=== PATIENT | male | born 1950 | race Caucasian/White ===

== ENCOUNTER 2024-10-22 13:49 | Outpatient (CLI) | payer MEDICARE, OTHER, SELFPAY ==
--- NOTE | ~2024-10-22 | XR_ITS ---
EXAMINATION: XR chest 2V DATE: 10/22/2024 14:24 INDICATION: Chronic cough. TECHNIQUE: PA and lateral views of the chest were obtained. COMPARISON: None FINDINGS: The lungs are clear with no focal airspace opacities, pulmonary edema, pleural effusion or pneumothor ax. Borderline heart size accounting for AP technique. Median sternotomy wires, ostial markers and me diastinal surgical clips consistent with prior coronary artery bypass grafting. Mild thoracic spondyl osis. IMPRESSION: 1. No acute cardiopulmonary disease. 2. Borderline heart size with change of prior coronary artery bypass grafting. Reviewed, dictated and finalized at location A.
--- OUTSIDE RECORDS SUMMARY | 2024-10-22 14:17 | XMS_ITS | Clinical Summary ---
Author Organization [facility] Address [address] [place] [address] Care Team Providers Care Founder And Chief Executive Officer Name Role Phone Kam Gillette Primary Care Provider [phone] Ralph De Jesus MD Unavailable [phone] Sarah Fairbanks RN Unavailable Unavailable Andra Canada RN Unavailable Unavailab le Allergies No known active allergies Medications cholecalciferol (VITAMIN D-3) 5,000 unit tablet daily. Ac tive multivitamin (MULTIPLE VITAMINS ORAL) daily. Active vit A/vit C/vit E/zinc/copper (ICAPS AREDS ORAL) daily 11/15/19 20 Active acyclovir (ZOVIRAX) 200 mg capsule 06/28/19 23 Active levothyroxine (Synthroid) 100 mcg tabletIndications: Other specified hypothyroidism Take 1 tablet (100 mcg total) by mouth daily 90 tablet 3 06/26/19 24 Active clotrimazole-betam ethasone (LOTRISONE) cream Apply topically 2 (two) times a day 45 g 1 10/27/19 24 Active aspirin 81 mg enteric coated tablet Take 1 tablet (81 mg total) by mouth daily 90 tablet 3 08/01/19 25 026 Active atorvastatin (Lipitor) 40 mg tabletIndications: Mixed hyperlipidemia Take 1 tablet (40 mg total) by mouth nightly at bedtime. 90 tablet 3 08/01/19 25 026 Active carvediloL (COREG) 25 mg tabletIndications: ASCVD (arteriosclerotic cardiovascular disease) Take 1 tablet (25 mg total) by mouth 2 (two) times a day with meals 180 tablet 3 08/01/19 25 026 Active ramipriL (ALTACE) 10 mg capsule Take 1 capsule (10 mg total) by mouth daily 90 capsule 3 08/01/19 25 026 Active nitroglycerin (NITROSTAT) 0.4 mg SL tabletIndications: acute episode of anginal pain Place 1 tablet (0.4 mg total) under the tongue every 5 (five) minutes as needed for chest pain 25 tablet 1 08/01/19 25 026 Active azithromycin (ZITHROMAX) 250 mg tabletIndications: Lower respiratory infection (e.g., bronchitis, pneumonia, pneumonitis, pulmonitis) Take 2 tablets the first day, then 1 tablet daily for 4 days. 6 tablet 10/19/19 25 Active benzonatate (TESSALON) 200 mg capsuleIndications :Lower respiratory infection (e.g., bronchitis, pneumonia, pneumonitis, pulmonitis) Take 1 capsule (200 mg total) by mouth 3 (three) times a day as needed for cough 30 capsule 10/19/19 25 Active benzonatate (TESSALON) 200 mg capsuleIndications :Acute cough Take 1 capsule (200 mg total) by mouth 3 (three) times a day as needed for cough keep tessalon out of reach of children, especially children under the age of 10, due to possible serious risk such as if ingested by children under the age of 10. 30 capsule 10/01/19 25 025 Discontinu ed(Therapy completed) azithromycin (ZITHROMAX) 250 mg tabletIndications: Acute lower respiratory infection Take 2 tabs (500 mg) by mouth today, than 1 tab (250 mg) daily for 4 days. 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 return to ER for recurrent Morbid (severe) obesity due to excess calories 0 07/04/2022 Cough 12/23/2021 Assessment & Plan (12/23/2021 11:52 AM CDT): Suspect medications, will get CXR to be safe will discuss further after results Actinic keratosis 06/22/2021 Assessment & Plan (06/26/2021 11:23 AM SUPPLY PERSON): Verbal permission, liquid nitrogen to 7 lesions, skin care discussed Routine general medical exam ination at a health care facility 05/16/2019 Assessment & Plan (08/09/2023 8:45 AM SUPPLY PERSON): Healthcare maintenance updated Assessment & Plan (07/04/2022 11:23 AM SUPPLY PERSON): Healthcare maintenance updated Screening for depression 05/16/2019 Assessment & Plan (05/27/2020 10:13 AM SUPPLY PERSON): Denies depression At minimum risk for fall 05/16/2019 Assessment & Plan (07/04/2022 11:22 AM SUPPLY PERSON): No fall Assessment & Plan (05/27/2020 10:12 AM SUPPLY PERSON): Patient denies any fall Other specified hypothyroidism 03/04/2019 Assessment & Plan (08/09/2023 8:45 AM SUPPLY PERSON): This is a stable chronic condition continue current meds labs as ordered Assessment & Plan (12/27/2022 1:46 PM CDT): This is been well controlled on current medications, continue current meds and labs as ordered follow-up routine Assessment & Plan (07/04/2022 11:22 AM SUPPLY PERSON): Controlled with medications, labs as ordered Assessment & Plan (12/23/2021 11:53 AM CDT): Continue current medications pending labs Assessment & Plan (11/30/2020 9:02 AM CDT): Continue current medications, labs as ordered, follow-up 6 Assessment & Plan (05/27/2020 10:12 AM SUPPLY PERSON): Continue current meds labs as ordered Assessment & Plan (11/26/2019 10:16 AM CDT): CPM, labs as ordered HTN (hypertension) 02/19/2019 Assessment & Plan (08/09/2023 8:44 AM SUPPLY PERSON): This is a stable chronic condition. Monitor blood pressure, call if out of parameters as we discussed. Low sodium and caffeine diet. baby asa as discussed if applicable. Diet, exercise and weight reduction. Labs as ordered. F/U routine Assessment & Plan (07/19/2023 12:25 PM SUPPLY PERSON): This is a stable chronic condition. Monitor blood pressure, call if out of parameters as we discussed. Low sodium and caffeine diet. baby asa as discussed if applicable. Diet, exercise and weight reduction. Labs as ordered. F/U routine Assessment & Plan (12/27/2022 1:46 PM CDT): This is a stable chronic condition. Monitor blood pressure, call if out of parameters as we discussed. Low sodium and caffeine diet. baby asa as discussed if applicable. Diet, exercise and weight reduction. Labs as ordered. F/U routine Assessment & Plan (07/04/2022 11:22 AM SUPPLY PERSON): This is a stable chronic condition. Monitor blood pressure, call if out of parameters as we discussed. Low sodium and caffeine diet. baby asa as discussed if applicable. Diet, exercise and weight reduction. Labs as ordered. F/U routine Assessment & Plan (11/30/2020 9:02 AM CDT): This is a stable chronic condition. Monitor blood pressure, call if out of parameters as we discussed. Low sodium and caffeine diet. baby asa as discussed if applicable. Diet, exercise and weight reduction. Labs as ordered. F/U routine Assessment & Plan (05/27/2020 10:12 AM SUPPLY PERSON): This is a stable chronic condition. Monitor blood pressure, call if out of parameters as we discussed. Low sodium and caffeine diet. baby asa as discussed if applicable. Diet, exercise and weight reduction. Labs as ordered. F/U routine Assessment & Plan (11/26/2019 10:15 AM CDT): Images from the original note were not included. This is a stable chronic condition. Monitor blood pressure, call if out of parameters as we discussed. Low sodium and caffeine diet. baby asa as discussed if applicable. Diet, exercise and weight reduction. Labs as ordered. F/U routine Other chest pain 01/06/2019 Assessment & Plan (01/06/2019 4:15 AM CDT): His symptoms are vague but, per his report, similar to the symptoms that led to the diagnosis of three-vessel CAD in 2014. At that time he was diabetic. Since his CABG he has done well and no longer takes medication for diabetes. He is not physically active, although he does try to get 5-12422 steps/day. He does not have chest pain or pressure on exertion. This episode today occurred while lying on a stretcher. It has since resolved. He did not take nitro (declined). EKG with 1mm ST depressions in lateral leads, now resolved. -repeat troponin x 2 -consider stress test either now or as an outpatient Hot flashes 01/06/2019 Assessment & Plan (01/06/2019 4:21 AM CDT): Vague symptoms but possibly ict sales representative of angina. He was recently diagnosed with hypothyroidism and is on synthroid. Will check TSH/T4. He also had a diagnosis of diabetes (only required metformin) but this resolved after CABG with diet and exercise. Recheck A1C now as he has had recent weight gain. He is on Topomax for weight loss but I am not aware of this as a side effect. Other possibilities would include atrial fibrillation (had postop AF but none since) or infection (mild leukocytosis). -tele -UA -thyroid studies, A1C Obesity (BMI 30-39.9) 10/09/2018 Assessment & Plan (01/06/2019 4:22 AM CDT): Hold Topamax for now until chest pain is evaluated. Assessment & Plan (10/09/2018 9:50 AM CDT): Recommended aggressive Lifestyle modification and weight loss for improving overall weight related health conditions. Follow up in 1 or 3 months for continuing Lifestyle Medicine education and management visit. Weight gain, abnormal 09/08/2018 Assessment & Plan (11/30/2020 9:03 AM CDT): Healthy diet exercise and weight reduction, follow-up routine Assessment & Plan (05/27/2020 10:13 AM SUPPLY PERSON): Discussed the importance of diet exercise and weight reduction Assessment & Plan (10/09/2018 9:44 AM CDT): Discussed/Re-emphasized Diet (90%) + Physical Activity (10%) Plan: Discussed/Re-emphasized Vegetables/Fruits Nutritional Ranking Handout: Recommended >80% calories from Whole Food Plant Based Nutrition. Discussed/Re-emphasized Processed Food (Frozen, Canned, Fast, Refined...) vs. Whole Food/Organic/Non-GMO Discussed/Re-emphasized High Fiber Diet: How to increase fibers in diet Handout being provided. Discussed/Re-emphasized Dawn/Phytochemicals Diet. Disucssed/Re-emphasized [place] Diet: Grocery List and Weekly Meal Plan provided. Discussed/Re-emphasized Low Carb Diet (<50g/day) with approximately Low Calories (<1200kcal/day): Grocery List, Daily Meal Plan and Healthy Alternative being provided. Discussed/Re-emphasized Non-weight bearing exercise to complete average 7500- 97082 steps per day: Swimming or Stationary Exercise Bike. Disccused/Re-emphasized SAI/CPAP/Sleep. Disccused/Re-emphasized Good Carb/Protein/Fat. Discussed/Re-emphasized Glycemic Index/Load to determine Good vs. Bad Carbs. Discussed/Re-emphasized Behaviroral Modification to reduce stress by Yoga and Mindfulness. Discussed/Re-emphasized Small (<250kcal) vs. Large Meals (<450kcal) Based on Calories, not volume: Approximately Small Meals x 3 + Large Meal x 1 (Preferably Lunch). Discussed/Re-emphasized Small Meal Intermittent Snacking (<250kcal): Nuts (Soaked in water overnight), Berries, Seeds, Dried/Fresh Fruits/Vegetables. Discussed/Re-emphasized Energy Options: Vitamin B12 Tablets (2 hours prior to Dinner), Caffeine Tablets (in AM or Lunch Time) or FDA Approved Weight Loss Prescription Medications. Discussed/Re-emphasized Weight loss Medications in detail including side effects: Phenteramine, Qsymia, Belviq, Contrave, Saxenda! Consider OTC Meal Replacement Plans or Home Delivery Meal Plans. Encourage Monthly office visits to ensure accountability and continuous positive weight outcomes. General Guidelines: 1. Restrict Caloric Intake: Instead of calculating total calories, you can eliminate one food item from daily intake at a time that would be worth of 100-200 kcal. Minimize Processed carbohydrates (Potatoes, Pasta, Bread, rice and corn) and processed sugars (Sodas, Cookies, Donuts & Desserts). Small plates and bowels. Small meals (Under 250kcal) at a time! 2. Quality of Diet: Organic, Non-GMO, fresh, raw-food, whole-food & more fruits and vegetables. Look for lean protein (Soy, Lentils, beans, legumes and nuts). Avoid processed food (frozen, canned, fast-food). Shop food economically from multiple places. 3. Stress Reduction: Yoga, Mindfulness, Exercise, Volunteering, Spirituality! Mindfulness eating (Avoid multi-tasking while eating and Increase awareness of what food is doing to Body). 4. Quality Restful Sleep: Melatonin, Yoga-Nidra, Kiwi fruit. Avoid meals in last two hours of the day. Avoid Caffeine, alcohol, high sugar/desserts and tobacco with or after dinner. 5. Increase Exertion within Daily Activities: 7500-71625 Steps/day. Avoid Elevators, escalators at public places. Increase steps in parking lots!. Clinical Notes: More than 30 minutes being spent Face to Face with Patient during office visit. More than 50% duration was spent toward Detailed Counselling including various kinds of Dietory methods, activities, medications and potential weight loss surgical options. Detailed Handouts on each topics were also printed and hand-delivered to the patient. Pure hypercholesterolemia 08/13/2018 Overview (05/22/2019): CPM, labs, diet Assessment & Plan (12/23/2021 11:53 AM CDT): Patient is to continue present medications, work on diet and exercise as discussed, we did discuss the medications and potential side effects and signs and symptoms that would warrant calling office. Follow up routine. Encounter for risk and functional assessment 09/2018 Overview (05/22/2019): able to perform all ADL Assessment & Plan (05/27/2020 10:12 AM SUPPLY PERSON): Patient is able to perform all ADL ASCVD (arteriosclerotic cardiovascular disease) 08/10/2017 Assessment & Plan (08/09/2023 8:44 AM SUPPLY PERSON): This is also stable chronic condition continue current medications follow-up with Cardiology Assessment & Plan (07/19/2023 12:25 PM SUPPLY PERSON): Patient is Assessment & Plan (12/27/2022 1:46 PM CDT): Patient is stable, continue current meds, follow-up with Cardiology Assessment & Plan (07/04/2022 11:22 AM SUPPLY PERSON): This is stable and patient is followed by cardiology Assessment & Plan (12/23/2021 11:52 AM CDT): This is stable and patient is taking his meds and followed by cardiology will continue to follow Assessment & Plan (11/30/2020 8:54 AM CDT): This is well controlled, patient is on aspirin. Patient is on a statin. Continue to follow up with Cardiology Assessment & Plan (05/27/2020 10:10 AM SUPPLY PERSON): Patient is stable, continue current meds follow-up routine Atrial fibrillation 07/22/2016 Assessment & Plan (12/23/2021 11:52 AM CDT): This is stable and patient is asymptomatic continue current meds follow-up 6 months Assessment & Plan (05/27/2020 10:12 AM SUPPLY PERSON): This is well controlled patient is on meds and followed by cardiology Assessment & Plan (11/26/2019 10:14 AM CDT): Stable, no issues, seeing cardiology Diabetes mellitus 06/16/2016 Assessment & Plan (08/09/2023 8:44 AM SUPPLY PERSON): Patient is going to continue current medications, current labs were ordered, eye exam is up-to-date, foot care was discussed. Healthy diet and reference to [email or web address]. Exercise as discussed, follow-up as scheduled routine. We did discuss proper monitoring of blood sugars Assessment & Plan (07/19/2023 12:25 PM SUPPLY PERSON): Patient is going to continue current medications, current labs were ordered, eye exam is up-to-date, foot care was discussed. Healthy diet and reference to [email or web address]. Exercise as discussed, follow-up as scheduled routine. We did discuss proper monitoring of blood sugars Assessment & Plan (12/27/2022 1:46 PM CDT): This is been well controlled with diet last A1c was 6.5 continue diet exercise and weight reduction eye exam is up-to-date labs as ordered Assessment & Plan (07/04/2022 11:22 AM SUPPLY PERSON): This is diet controlled, labs as ordered Assessment & Plan (12/23/2021 11:52 AM CDT): This is diet controlled will continue to monitor Assessment & Plan (11/30/2020 9:02 AM CDT): This is in excellent control with diet only continue diet. Assessment & Plan (05/27/2020 10:12 AM SUPPLY PERSON): Patient is going to continue current medications, current labs were ordered, eye exam is up-to-date, foot care was discussed. Healthy diet and reference to [email or web address]. Exercise as discussed, follow-up as scheduled routine. We did discuss proper monitoring of blood sugars Assessment & Plan (11/26/2019 10:14 AM CDT): Patient is going to continue current medications, current labs were ordered, eye exam is up-to-date, foot care was discussed. Healthy diet and reference to [email or web address]. Exercise as discussed, follow-up as scheduled routine. We did discuss proper monitoring of blood sugars Dyspnea 06/16/2016 H/O cardiac catheterization 06/16/2016 Light headedness 06/16/2016 Sleep apnea 06/16/2016 Assessment & Plan (12/23/2021 11:53 AM CDT): Patient is tolerating his CPAP well continue current treat Assessment & Plan (11/30/2020 9:03 AM CDT): This is stable and patient is seeing Dr. Nation in using his CPAP Assessment & Plan (05/27/2020 10:13 AM SUPPLY PERSON): Continue CPAP Assessment & Plan (11/26/2019 10:17 AM CDT): On C-Pap Hyperlipidemia 06/16/2016 Assessment & Plan (08/09/2023 8:44 AM SUPPLY PERSON): Patient is to continue present medications, work on diet and exercise as discussed, we did discuss the medications and potential side effects and signs and symptoms that would warrant calling office. Follow up routine. Assessment & Plan (07/19/2023 12:25 PM SUPPLY PERSON): Patient is to continue present medications, work on diet and exercise as discussed, we did discuss the medications and potential side effects and signs and symptoms that would warrant calling office. Follow up routine. Assessment & Plan (12/27/2022 1:46 PM CDT): Patient is to continue present medications, work on diet and exercise as discussed, we did discuss the medications and potential side effects and signs and symptoms that would warrant calling office. Follow up routine. Assessment & Plan (07/04/2022 11:22 AM SUPPLY PERSON): Patient is to continue present medications, work on diet and exercise as discussed, we did discuss the medications and potential side effects and signs and symptoms that would warrant calling office. Follow up routine. Assessment & Plan (11/30/2020 9:02 AM CDT): Patient is to continue present medications, work on diet and exercise as discussed, we did discuss the medications and potential side effects and signs and symptoms that would warrant calling office. Follow up routine. Assessment & Plan (05/27/2020 10:12 AM SUPPLY PERSON): Patient is to continue present medications, work on diet and exercise as discussed, we did discuss the medications and potential side effects and signs and symptoms that would warrant calling office. Follow up routine. Assessment & Plan (11/26/2019 10:15 AM CDT): Patient is to continue present medications, work on diet and exercise as discussed, we did discuss the medications and potential side effects and signs and symptoms that would warrant calling office. Follow up routine. Paroxysmal atrial fibrillation 04/06/2015 Assessment & Plan (08/09/2023 8:44 AM SUPPLY PERSON): This is a stable chronic condition continue current meds follow-up with Cardiology Assessment & Plan (07/19/2023 12:25 PM SUPPLY PERSON): Patient is stable asymptomatic and followed by cardiology Assessment & Plan (12/27/2022 1:46 PM CDT): Patient is stable and asymptomatic continue current meds follow-up routine Assessment & Plan (07/04/2022 11:22 AM SUPPLY PERSON): This is well controlled and patient is asymptomatic continue current meds follow-up with Cardiology routine Assessment & Plan (11/30/2020 9:02 AM CDT): This is stable, patient is on aspirin and seen Cardiology, follow-up routine Diastolic dysfunction 04/06/2015 History of coronary artery bypass surgery 2014 Abnormal cardiovascular stress test 04/06/2015 Triple vessel coronary artery disease 02/12/2015 Assessment & Plan (08/09/2023 8:44 AM SUPPLY PERSON): Patient is stable asymptomatic and followed by cardiology encourage activity status post left knee replacement Assessment & Plan (07/19/2023 12:25 PM SUPPLY PERSON): Patient is stable and followed by cardiology Assessment & Plan (12/27/2022 1:47 PM CDT): Patient is stable and asymptomatic. Follow-up with Cardiology Assessment & Plan (07/04/2022 11:23 AM SUPPLY PERSON): This is stable and patient is asymptomatic continue current meds follow-up with Cardiology Assessment & Plan (12/23/2021 11:53 AM CDT): Patient is stable and followed by cardiology Assessment & Plan (11/30/2020 9:03 AM CDT): Patient is stable and seen Cardiology. He is on an aspirin and a statin. Follow- up routine Assessment & Plan (01/06/2019 4:15 AM CDT): Continue ASA, statin, BB. Resolved Problems Problem Noted Date Diagnosed Date Resolved Date Hyperlipidemia 04/06/2015 05/16/2019 Assessment & Plan (01/06/2019 4:22 AM CDT): Continue statin. Encounters Date Type Department Care Team Description 10/18/2024 9:15 AM CDT Office Visit [facility] at [address] [id number] Emilia Aguilar NP Lower respiratory infection (e.g., bronchitis, pneumonia, pneumonitis, pulmonitis) (Primary Dx) 09/30/2024 9:15 AM CDT Office Visit [facility] [address] [phone] Josef Mueller NP Acute cough (Primary Dx); Acute lower respiratory infection 09/04/2024 12:35 PM CDT Lab [facility] [address] [id number] 08/01/2024 11:00 AM SUPPLY PERSON Office Visit [facility] [address] [facility] [address] [place] [address] Ralph De Jesus MD Primary hypertension (Primary Dx); Diastolic dysfunction; Mixed hyperlipidemia; ASCVD (arteriosclerotic cardiovascular disease) from Last 3 Months Immunizations Immunization Administration Dates Next Due Influenza, Quadrivalent, Hig h Dose, Preservative Free, Intrr 03/09/2023,03/25/2022,04/06/2020 Influenza, Trivalent, High D ose, Split, Preservative Free, Intramuscular 05/22/2019,07/13/2018 Influenza, Unspecified 03/09/2023,2021,04/21/2021,04/06,07/13/2018,03/05/2015 Moderna SARS-CoV-2 Monovalen t Vaccination (12+ YRS) 08/12/2020,07/15/2020 Pneumococcal Conjugate PCV 13 11/30/2020 Pneumococcal Polysaccharide PPV23 07/15/2016 RSV Vaccine, Pref, Recombina nt, Subunit, Adjuvanted, PF, IM (Arexvy) 03/09/2023 TD Preservative Free 06/23/2014 ZOSTER LIVE 06/23/2014 Surgical History Surgery Date Site/Laterality Comments EAR SURGERY Ear Surgery - (Added by TW Conv) HEART SURGERY Heart Surgery - (Added by TW Conv) CARDIAC CATHETERIZATION 02/02/2015 CORONARY ARTERY BYPASS GRAFT 02/10/2015 - 03/11/2015 KNEE SURGERY 06/12/1964 - 06/11/1965 COLONOSCOPY 06/12/2009 - 07/12/2009 JOINT REPLACEMENT Medical History Medical History Date Comments Personal history of other di seases of the nervous system and sense organs History of hearing los s - (Added by TW Conv) Pure hypercholesterolemia High c holesterol - (Added by TW Conv) Personal history of other en docrine, nutritional and metabolic disease History of diabetes mellitus - (Added by TW Conv) Personal history of other di seases of the nervous system and sense organs History of sleep apnea - (Added by TW Conv) Coronary artery disease Diabetes mellitus (HCC) Hypertension Depression 1995 Heart disease 2014 Sleep apnea 2013 Thyroid disease 2018 Mixed conductive and sensori neural hearing loss 1976 Family History Medical History Relation Name Comments Diabetes Father Ed Heart disease Father Ed Obesity Father Ed Hearing loss Maternal Grandfather Evgeny Thomas Anemia Mother Renetta Diabetes Mother Renetta Heart disease Mother Renetta Family history of cardiac disorder - (Added by TW Conv) Kidney disease Mother Renetta Family histor y of kidney disease - (Added by TW Conv) Memory loss Mother Renetta Obesity Mother Renetta Stroke Mother Renetta Diabetes Sister 4 María Elena Diabetes Sister 5 Roxann Relation Name Status Comments Brother 1 Alive Brother 2 Alive Father Ed (Age 77) Maternal Grandfather Evgeny Thomas Mother Renetta (Age 89) Sister 1 Alive Sister 2 Alive Sister 3 Alive Sister 4 María Elena Sister 5 Roxann Social History Tobacco Use Types Packs/Day Years Used Date Smoking Tobacco: Former Vaping Smokeless Tobacco: Never Tobacco Cessation:Counseling Given: Not Answered Alcohol Use Standard Drinks/Week Comments Never 0 (1 standard drink = 0.6 oz pur e alcohol) AUDIT-C Answer Date Recorded Q1: How often do you have a drink containing alc ohol? Monthly or less 08/09/2023 Q2: How many drinks containi ng alcohol do you have on a typical day when you are drinking? 1 or 2 08/09/2023 Frequency of Binge Drinking Not on file 07/14 PHQ-2 Answer Date Recorded PHQ-2 Total Score (If total score is 3 or more points, staff should administer the PHQ-9) 0 08/02/2023 Personal Safety Answer Date Recorded Have you ever been in or are you currently in a harmful physical or emotional relationship or is someone making you feel afraid or unsafe? Denies 07/13/2023 Sex and Gender Information Value Date Recorded Sex Assigned at Not on file Legal Sex Male 6:25 AM SUPPLY PERSON Gender Identity Male 05/22/2020 10:26 AM SUPPLY PERSON Sexual Orientation Not on file Obstetrics History Last Filed Vital Signs Vital Sign Reading Time Taken Comments Blood Pressure 126/70 10/18/2024 9:18 AM CDT Pulse 86 10/18/2024 9:18 AM CDT Temperature 37.8 C (100 F) 10/18/2024 9:18 AM CDT Respiratory Rate 20 10/18/2024 9:18 AM CDT Oxygen Saturation 99% 10/18/2024 9:18 AM CDT Inhaled Oxygen Concentration - - Weight 105.7 kg (233 lb) 10/18/2024 9:18 AM CDT Height 172.7 cm (5' 8 ) 10/18/2024 9:18 AM CDT Body Mass Index 35.43 10/18/2024 9:18 AM CDT Plan of Treatment Health Maintenance Due Date Last Done Comments Hepatitis B Screening 1968 Foot Exam 06/22/2022 06/22/2021, 11/11, 05/27/2020, Additional history exists Covid-19 Vaccine (2023- 5 season) 2024 03/18/2023, 09/17/2021, 04/21/2021, Additional history exists Depression Screening 08/09/2024 08/09/2023, 07/19/2023, 07/04/2022, Additional history exists Fall Risk Assessment 08/09/2024 08/09/2023, 07/19/2023, 07/04/2022, Additional history exists Well Visit 65+ 08/09/2024 08/09/2023, 06/13, 06/22/2021, Additional history exists Dilated Eye Exam 12/22/2024 12/22/2022, , 12/02/2020 Hemoglobin A1C 03/07/2025 09/04/2024, 02/11, 08/09/2023, Additional history exists Albumin Creatinine Ratio, Urine 09/04/2025 09/04/2024, 03/06/2024, 08/09/2023, Additional history exists Lipid Panel 09/04/2025 09/04/2024, 02/11, 08/09/2023, Additional history exists eGFR 09/04/2025 09/04/2024, 02/11, 08/09/2023, Additional history exists Colon Cancer Screening-Colonoscopy 07/18/2029 07/18/2019 DTaP/Tdap/Td Vaccine Discontinued 06/23/2014, 07/05/19 14 Hepatitis C Screening Completed 05/22/2019 Abdominal Aortic Aneurysm (A AA) Screen Completed 06/20/2019 Colon Cancer Screening-CT Colonography Discontinued 07/18/2019 Colon Cancer Screening-DNA Stool Discontinued 07/18/19 20 Colon Cancer Screening-FIT Discontinued 07/18/2019 Colon Cancer Screening-Sigmoidoscopy Discontinued 07/18/2019 Pneumococcal vaccine 65+ Completed 11/30/2020, 08/2016 Zoster Vaccine Discontinued 03/19/2021, 0 06/2017, 06/23/2014, Additional history exists Influenza Vaccine Completed 04/10/2024, , 03/09/2023, Additional history exists Procedures Procedure Name Priority Date/Time Associated Diagnosis Comments POC INFLUENZA A/B, COVID-19 ANTIGEN Routine 10/18/2024 9:42 AM CDT Lower respiratory infection (e.g., bronchitis, pneumonia, pneumonitis, pulmonitis) POC INFLUENZA A/B, COVID-19 ANTIGEN Routine 09/30/2024 9:55 AM CDT Acute cough EGFR Routine 09/04/2024 12:56 PM CDT VITAMIN D 25 HYDROXY Routine 09/04/2024 12:56 PM CDT ALBUMIN CREATININE RATIO, URINE Routine 09/04/2024 12:56 PM CDT HEMOGLOBIN A1C Routine 09/04/2024 12:56 PM CDT T4, FREE Routine 09/04/2024 12:56 PM CDT TSH Routine 09/04/2024 12:56 PM CDT COMPREHENSIVE METABOLIC PANEL Routine 09/04/2024 12:56 PM CDT LIPID PANEL Routine 09/04/2024 12:56 PM CDT DIABETIC EYE EXAM Routine 12/22/2022 COLONOSCOPY Routine 07/18/2019 US ABDOMINAL AORTA 06/20/2019 9: 21 AM SUPPLY PERSON HEPATITIS C ANTIBODY Routine 05/22/2019 9:13 AM SUPPLY PERSON Need for hepatitis C screening test from Last 3 Months or Most Recently Relevant to Health Maintenance Results * POC Influenza A/B, COVID-19 antigen (10/18/2024 9:42 AM CDT) Influenza A Ag, POC Negative Negative [facility] Influenza B Ag, POC Negative Negative [facility] COVID-19 Ag POC Presumptive Negative Presumptive Negative, Invalid [facility] Nasal 10/18/2024 9:42 AM CDT Emilia Aguilar PROJECT CONTROL OFFICER POINT OF CARE TEST ORDERABLES Final Result Performing Organization Address [facility] de Phone Number [facility] [address] [place] [address] * POC Influenza A/B, COVID-19 antigen (09/30/2024 9:55 AM CDT) Influenza A Ag, POC Negative Negative [facility] Influenza B Ag, POC Negative Negative [facility] COVID-19 Ag POC Presumptive Negative Presumptive Negative, Invalid [facility] Nasal 09/30/2024 9:55 AM CDT Josef Mueller PROJECT CONTROL OFFICER POINT OF CARE TEST ORDERABLES F inal Result Performing Organization Address [facility] Co de Phone Number [facility] [address] [place] [address] * eGFR (09/04/2024 12:56 PM CDT) Pathologist [facility] eGFR >90 >=60 mL/min/1. 73 m2 Comment: Interpretive Data Reference Interval Normal >/= 90 mL/min/1.73m2 Mildly decreased* 60 - 89 mL/min/1.73m2 Mildly to moderately decreased 45 - 59 mL/min/1.73m2 Moderately to severely decreased 30 - 44 mL/min/1.73m2 Severely decreased 15 - 29 mL/min/1.73m2 Kidney Failure < 15 mL/min/1.73m2 *Relative to young adult level Estimated glomerular filtration rate is determined by the 2020 CKD-EPI equation recommended by the National Kidney Foundation (A Unifying Approach to GFR Estimation: Recommendations of the NKF-ASK Task Force on Reassessing the Inclusion of Race in Diagnosing Kidney Disease, JASN 2020). The CKD-EPI equation should not be used for patients with unstable renal function and has not been validated in children and those over 70. Current interpretive data was last reviewed 2021. Testing performed by: [address] [address] Blood 09/04/2024 12:5 6 PM CDT 09/04/2024 2:09 PM CDT Kam YING LAB BLOOD ORDERABLES Final Resu lt [facility] [address] [facility] Department [place] [address] * Albumin Creatinine Ratio, Urine (09/04/2024 12:56 PM CDT) Albumin Ur <12.0 mg/L Comment: Interpretive Data No reference range established. Current interpretive data was last revised 2018. Testing performed by: [address] [address] Creatinine Ur 94.9 mg/dL JADA Comment: Interpretive Data No reference range established. Current interpretive data was last revised 2018. Testing performed by: [address] [address] Albumin Creatinine Ratio, Ur <13 1 - 29 mg/g JADA [id number]|2024-10-22 14:17:00|2024-10-22 14:16:00|XMS_ITS|SATURNINO LOPEZ|External Medical Summaries|[id number]|" Referral Summary Created on: October 22, 2024 Dion Gillette : 1950 Sex: Male Author Organization [facility] Address [address] [place] [address] Care Team Providers Care Founder And Chief Executive Officer Name Role Phone Kam Gillette Primary Care Provider Ralph De Jesus MD Unavailable [phone] Sarah Fairbanks RN Unavailable Unavailable Andra Canada RN Unavailable Unavailab le Encounters Date Type Department Care Team Description 10/18/2024 9:15 AM CDT Office Visit [facility] at [address] [address] Emilia Aguilar NP Lower respiratory infection (e.g., bronchitis, pneumonia, pneumonitis, pulmonitis) (Primary Dx) 09/30/2024 9:15 AM CDT Office Visit [facility] Medical [facility] at [address] [phone] Josef Mueller NP Acute cough (Primary Dx); Acute lower respiratory infection 09/04/2024 12:35 PM CDT Lab [facility] Medical Office Building [address] [address] 08/01/2024 11:00 AM SUPPLY PERSON Office Visit [facility] Medical Office Building [address] [place] [address] Ralph De Jesus MD Primary hypertension (Primary Dx); Diastolic dysfunction; Mixed hyperlipidemia; ASCVD (arteriosclerotic cardiovascular disease) from Last 3 Months Allergies No known active allergies Medications cholecalciferol (VITAMIN D-3) 5,000 unit tablet daily. Ac tive multivitamin (MULTIPLE VITAMINS ORAL) daily. Active vit A/vit C/vit E/zinc/copper (ICAPS AREDS ORAL) daily 11/15/19 20 Active acyclovir (ZOVIRAX) 200 mg capsule 06/28/19 23 Active levothyroxine (Synthroid) 100 mcg tabletIndications: Other specified hypothyroidism Take 1 tablet (100 mcg total) by mouth daily 90 tablet 3 06/26/19 24 Active clotrimazole-betam ethasone (LOTRISONE) cream Apply topically 2 (two) times a day 45 g 1 10/27/19 24 Active aspirin 81 mg enteric coated tablet Take 1 tablet (81 mg total) by mouth daily 90 tablet 3 08/01/19 25 026 Active atorvastatin (Lipitor) 40 mg tabletIndications: Mixed hyperlipidemia Take 1 tablet (40 mg total) by mouth nightly at bedtime. 90 tablet 3 08/01/19 25 026 Active carvediloL (COREG) 25 mg tabletIndications: ASCVD (arteriosclerotic cardiovascular disease) Take 1 tablet (25 mg total) by mouth 2 (two) times a day with meals 180 tablet 3 08/01/19 25 026 Active ramipriL (ALTACE) 10 mg capsule Take 1 capsule (10 mg total) by mouth daily 90 capsule 3 08/01/19 25 026 Active nitroglycerin (NITROSTAT) 0.4 mg SL tabletIndications: acute episode of anginal pain Place 1 tablet (0.4 mg total) under the tongue every 5 (five) minutes as needed for chest pain 25 tablet 1 08/01/19 25 026 Active azithromycin (ZITHROMAX) 250 mg tabletIndications: Lower respiratory infection (e.g., bronchitis, pneumonia, pneumonitis, pulmonitis) Take 2 tablets the first day, then 1 tablet daily for 4 days. 6 tablet 10/19/19 25 Active benzonatate (TESSALON) 200 mg capsuleIndications :Lower respiratory infection (e.g., bronchitis, pneumonia, pneumonitis, pulmonitis) Take 1 capsule (200 mg total) by mouth 3 (three) times a day as needed for cough 30 capsule 10/19/19 25 Active benzonatate (TESSALON) 200 mg capsuleIndications :Acute cough Take 1 capsule (200 mg total) by mouth 3 (three) times a day as needed for cough keep tessalon out of reach of children, especially children under the age of 10, due to possible serious risk such as if ingested by children under the age of 10. 30 capsule 10/01/19 25 025 Discontinu ed(Therapy completed) azithromycin (ZITHROMAX) 250 mg tabletIndications: Acute lower respiratory infection Take 2 tabs (500 mg) by mouth today, than 1 tab (250 mg) daily for 4 days. 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 return to ER for recurrent Morbid (severe) obesity due to excess calories 0 07/04/2022 Cough 12/23/2021 Assessment & Plan (12/23/2021 11:52 AM CDT): Suspect medications, will get CXR to be safe will discuss further after results Actinic keratosis 06/22/2021 Assessment & Plan (06/26/2021 11:23 AM SUPPLY PERSON): Verbal permission, liquid nitrogen to 7 lesions, skin care discussed Routine general medical exam ination at a health care facility 05/16/2019 Assessment & Plan (08/09/2023 8:45 AM SUPPLY PERSON): Healthcare maintenance updated Assessment & Plan (07/04/2022 11:23 AM SUPPLY PERSON): Healthcare maintenance updated Screening for depression 05/16/2019 Assessment & Plan (05/27/2020 10:13 AM SUPPLY PERSON): Denies depression At minimum risk for fall 05/16/2019 Assessment & Plan (07/04/2022 11:22 AM SUPPLY PERSON): No fall Assessment & Plan (05/27/2020 10:12 AM SUPPLY PERSON): Patient denies any fall Other specified hypothyroidism 03/04/2019 Assessment & Plan (08/09/2023 8:45 AM SUPPLY PERSON): This is a stable chronic condition continue current meds labs as ordered Assessment & Plan (12/27/2022 1:46 PM CDT): This is been well controlled on current medications, continue current meds and labs as ordered follow-up routine Assessment & Plan (07/04/2022 11:22 AM SUPPLY PERSON): Controlled with medications, labs as ordered Assessment & Plan (12/23/2021 11:53 AM CDT): Continue current medications pending labs Assessment & Plan (11/30/2020 9:02 AM CDT): Continue current medications, labs as ordered, follow-up 6 Assessment & Plan (05/27/2020 10:12 AM SUPPLY PERSON): Continue current meds labs as ordered Assessment & Plan (11/26/2019 10:16 AM CDT): CPM, labs as ordered HTN (hypertension) 02/19/2019 Assessment & Plan (08/09/2023 8:44 AM SUPPLY PERSON): This is a stable chronic condition. Monitor blood pressure, call if out of parameters as we discussed. Low sodium and caffeine diet. baby asa as discussed if applicable. Diet, exercise and weight reduction. Labs as ordered. F/U routine Assessment & Plan (07/19/2023 12:25 PM SUPPLY PERSON): This is a stable chronic condition. Monitor blood pressure, call if out of parameters as we discussed. Low sodium and caffeine diet. baby asa as discussed if applicable. Diet, exercise and weight reduction. Labs as ordered. F/U routine Assessment & Plan (12/27/2022 1:46 PM CDT): This is a stable chronic condition. Monitor blood pressure, call if out of parameters as we discussed. Low sodium and caffeine diet. baby asa as discussed if applicable. Diet, exercise and weight reduction. Labs as ordered. F/U routine Assessment & Plan (07/04/2022 11:22 AM SUPPLY PERSON): This is a stable chronic condition. Monitor blood pressure, call if out of parameters as we discussed. Low sodium and caffeine diet. baby asa as discussed if applicable. Diet, exercise and weight reduction. Labs as ordered. F/U routine Assessment & Plan (11/30/2020 9:02 AM CDT): This is a stable chronic condition. Monitor blood pressure, call if out of parameters as we discussed. Low sodium and caffeine diet. baby asa as discussed if applicable. Diet, exercise and weight reduction. Labs as ordered. F/U routine Assessment & Plan (05/27/2020 10:12 AM SUPPLY PERSON): This is a stable chronic condition. Monitor blood pressure, call if out of parameters as we discussed. Low sodium and caffeine diet. baby asa as discussed if applicable. Diet, exercise and weight reduction. Labs as ordered. F/U routine Assessment & Plan (11/26/2019 10:15 AM CDT): Images from the original note were not included. This is a stable chronic condition. Monitor blood pressure, call if out of parameters as we discussed. Low sodium and caffeine diet. baby asa as discussed if applicable. Diet, exercise and weight reduction. Labs as ordered. F/U routine Other chest pain 01/06/2019 Assessment & Plan (01/06/2019 4:15 AM CDT): His symptoms are vague but, per his report, similar to the symptoms that led to the diagnosis of three-vessel CAD in 2014. At that time he was diabetic. Since his CABG he has done well and no longer takes medication for diabetes. He is not physically active, although he does try to get 5-45118 steps/day. He does not have chest pain or pressure on exertion. This episode today occurred while lying on a stretcher. It has since resolved. He did not take nitro (declined). EKG with 1mm ST depressions in lateral leads, now resolved. -repeat troponin x 2 -consider stress test either now or as an outpatient Hot flashes 01/06/2019 Assessment & Plan (01/06/2019 4:21 AM CDT): Vague symptoms but possibly ict sales representative of angina. He was recently diagnosed with hypothyroidism and is on synthroid. Will check TSH/T4. He also had a diagnosis of diabetes (only required metformin) but this resolved after CABG with diet and exercise. Recheck A1C now as he has had recent weight gain. He is on Topomax for weight loss but I am not aware of this as a side effect. Other possibilities would include atrial fibrillation (had postop AF but none since) or infection (mild leukocytosis). -tele -UA -thyroid studies, A1C Obesity (BMI 30-39.9) 10/09/2018 Assessment & Plan (01/06/2019 4:22 AM CDT): Hold Topamax for now until chest pain is evaluated. Assessment & Plan (10/09/2018 9:50 AM CDT): Recommended aggressive Lifestyle modification and weight loss for improving overall weight related health conditions. Follow up in 1 or 3 months for continuing Lifestyle Medicine education and management visit. Weight gain, abnormal 09/08/2018 Assessment & Plan (11/30/2020 9:03 AM CDT): Healthy diet exercise and weight reduction, follow-up routine Assessment & Plan (05/27/2020 10:13 AM SUPPLY PERSON): Discussed the importance of diet exercise and weight reduction Assessment & Plan (10/09/2018 9:44 AM CDT): Discussed/Re-emphasized Diet (90%) + Physical Activity (10%) Plan: Discussed/Re-emphasized Vegetables/Fruits Nutritional Ranking Handout: Recommended >80% calories from Whole Food Plant Based Nutrition. Discussed/Re-emphasized Processed Food (Frozen, Canned, Fast, Refined...) vs. Whole Food/Organic/Non-GMO Discussed/Re-emphasized High Fiber Diet: How to increase fibers in diet Handout being provided. Discussed/Re-emphasized Dawn/Phytochemicals Diet. Disucssed/Re-emphasized [place] Diet: Grocery List and Weekly Meal Plan provided. Discussed/Re-emphasized Low Carb Diet (<50g/day) with approximately Low Calories (<1200kcal/day): Grocery List, Daily Meal Plan and Healthy Alternative being provided. Discussed/Re-emphasized Non-weight bearing exercise to complete average 7500- 76100 steps per day: Swimming or Stationary Exercise Bike. Disccused/Re-emphasized SAI/CPAP/Sleep. Disccused/Re-emphasized Good Carb/Protein/Fat. Discussed/Re-emphasized Glycemic Index/Load to determine Good vs. Bad Carbs. Discussed/Re-emphasized Behaviroral Modification to reduce stress by Yoga and Mindfulness. Discussed/Re-emphasized Small (<250kcal) vs. Large Meals (<450kcal) Based on Calories, not volume: Approximately Small Meals x 3 + Large Meal x 1 (Preferably Lunch). Discussed/Re-emphasized Small Meal Intermittent Snacking (<250kcal): Nuts (Soaked in water overnight), Berries, Seeds, Dried/Fresh Fruits/Vegetables. Discussed/Re-emphasized Energy Options: Vitamin B12 Tablets (2 hours prior to Dinner), Caffeine Tablets (in AM or Lunch Time) or FDA Approved Weight Loss Prescription Medications. Discussed/Re-emphasized Weight loss Medications in detail including side effects: Phenteramine, Qsymia, Belviq, Contrave, Saxenda! Consider OTC Meal Replacement Plans or Home Delivery Meal Plans. Encourage Monthly office visits to ensure accountability and continuous positive weight outcomes. General Guidelines: 1. Restrict Caloric Intake: Instead of calculating total calories, you can eliminate one food item from daily intake at a time that would be worth of 100-200 kcal. Minimize Processed carbohydrates (Potatoes, Pasta, Bread, rice and corn) and processed sugars (Sodas, Cookies, Donuts & Desserts). Small plates and bowels. Small meals (Under 250kcal) at a time! 2. Quality of Diet: Organic, Non-GMO, fresh, raw-food, whole-food & more fruits and vegetables. Look for lean protein (Soy, Lentils, beans, legumes and nuts). Avoid processed food (frozen, canned, fast-food). Shop food economically from multiple places. 3. Stress Reduction: Yoga, Mindfulness, Exercise, Volunteering, Spirituality! Mindfulness eating (Avoid multi-tasking while eating and Increase awareness of what food is doing to Body). 4. Quality Restful Sleep: Melatonin, Yoga-Nidra, Kiwi fruit. Avoid meals in last two hours of the day. Avoid Caffeine, alcohol, high sugar/desserts and tobacco with or after dinner. 5. Increase Exertion within Daily Activities: 7500-24535 Steps/day. Avoid Elevators, escalators at public places. Increase steps in parking lots!. Clinical Notes: More than 30 minutes being spent Face to Face with Patient during office visit. More than 50% duration was spent toward Detailed Counselling including various kinds of Dietory methods, activities, medications and potential weight loss surgical options. Detailed Handouts on each topics were also printed and hand-delivered to the patient. Pure hypercholesterolemia 08/13/2018 Overview (05/22/2019): CPM, labs, diet Assessment & Plan (12/23/2021 11:53 AM CDT): Patient is to continue present medications, work on diet and exercise as discussed, we did discuss the medications and potential side effects and signs and symptoms that would warrant calling office. Follow up routine. Encounter for risk and functional assessment 09/2018 Overview (05/22/2019): able to perform all ADL Assessment & Plan (05/27/2020 10:12 AM SUPPLY PERSON): Patient is able to perform all ADL ASCVD (arteriosclerotic cardiovascular disease) 08/10/2017 Assessment & Plan (08/09/2023 8:44 AM SUPPLY PERSON): This is also stable chronic condition continue current medications follow-up with Cardiology Assessment & Plan (07/19/2023 12:25 PM SUPPLY PERSON): Patient is Assessment & Plan (12/27/2022 1:46 PM CDT): Patient is stable, continue current meds, follow-up with Cardiology Assessment & Plan (07/04/2022 11:22 AM SUPPLY PERSON): This is stable and patient is followed by cardiology Assessment & Plan (12/23/2021 11:52 AM CDT): This is stable and patient is taking his meds and followed by cardiology will continue to follow Assessment & Plan (11/30/2020 8:54 AM CDT): This is well controlled, patient is on aspirin. Patient is on a statin. Continue to follow up with Cardiology Assessment & Plan (05/27/2020 10:10 AM SUPPLY PERSON): Patient is stable, continue current meds follow-up routine Atrial fibrillation 07/22/2016 Assessment & Plan (12/23/2021 11:52 AM CDT): This is stable and patient is asymptomatic continue current meds follow-up 6 months Assessment & Plan (05/27/2020 10:12 AM SUPPLY PERSON): This is well controlled patient is on meds and followed by cardiology Assessment & Plan (11/26/2019 10:14 AM CDT): Stable, no issues, seeing cardiology Diabetes mellitus 06/16/2016 Assessment & Plan (08/09/2023 8:44 AM SUPPLY PERSON): Patient is going to continue current medications, current labs were ordered, eye exam is up-to-date, foot care was discussed. Healthy diet and reference to [email or web address]. Exercise as discussed, follow-up as scheduled routine. We did discuss proper monitoring of blood sugars Assessment & Plan (07/19/2023 12:25 PM SUPPLY PERSON): Patient is going to continue current medications, current labs were ordered, eye exam is up-to-date, foot care was discussed. Healthy diet and reference to [email or web address]. Exercise as discussed, follow-up as scheduled routine. We did discuss proper monitoring of blood sugars Assessment & Plan (12/27/2022 1:46 PM CDT): This is been well controlled with diet last A1c was 6.5 continue diet exercise and weight reduction eye exam is up-to-date labs as ordered Assessment & Plan (07/04/2022 11:22 AM SUPPLY PERSON): This is diet controlled, labs as ordered Assessment & Plan (12/23/2021 11:52 AM CDT): This is diet controlled will continue to monitor Assessment & Plan (11/30/2020 9:02 AM CDT): This is in excellent control with diet only continue diet. Assessment & Plan (05/27/2020 10:12 AM SUPPLY PERSON): Patient is going to continue current medications, current labs were ordered, eye exam is up-to-date, foot care was discussed. Healthy diet and reference to [email or web address]. Exercise as discussed, follow-up as scheduled routine. We did discuss proper monitoring of blood sugars Assessment & Plan (11/26/2019 10:14 AM CDT): Patient is going to continue current medications, current labs were ordered, eye exam is up-to-date, foot care was discussed. Healthy diet and reference to [email or web address]. Exercise as discussed, follow-up as scheduled routine. We did discuss proper monitoring of blood sugars Dyspnea 06/16/2016 H/O cardiac catheterization 06/16/2016 Light headedness 06/16/2016 Sleep apnea 06/16/2016 Assessment & Plan (12/23/2021 11:53 AM CDT): Patient is tolerating his CPAP well continue current treat Assessment & Plan (11/30/2020 9:03 AM CDT): This is stable and patient is seeing Dr. Nation in using his CPAP Assessment & Plan (05/27/2020 10:13 AM SUPPLY PERSON): Continue CPAP Assessment & Plan (11/26/2019 10:17 AM CDT): On C-Pap Hyperlipidemia 06/16/2016 Assessment & Plan (08/09/2023 8:44 AM SUPPLY PERSON): Patient is to continue present medications, work on diet and exercise as discussed, we did discuss the medications and potential side effects and signs and symptoms that would warrant calling office. Follow up routine. Assessment & Plan (07/19/2023 12:25 PM SUPPLY PERSON): Patient is to continue present medications, work on diet and exercise as discussed, we did discuss the medications and potential side effects and signs and symptoms that would warrant calling office. Follow up routine. Assessment & Plan (12/27/2022 1:46 PM CDT): Patient is to continue present medications, work on diet and exercise as discussed, we did discuss the medications and potential side effects and signs and symptoms that would warrant calling office. Follow up routine. Assessment & Plan (07/04/2022 11:22 AM SUPPLY PERSON): Patient is to continue present medications, work on diet and exercise as discussed, we did discuss the medications and potential side effects and signs and symptoms that would warrant calling office. Follow up routine. Assessment & Plan (11/30/2020 9:02 AM CDT): Patient is to continue present medications, work on diet and exercise as discussed, we did discuss the medications and potential side effects and signs and symptoms that would warrant calling office. Follow up routine. Assessment & Plan (05/27/2020 10:12 AM SUPPLY PERSON): Patient is to continue present medications, work on diet and exercise as discussed, we did discuss the medications and potential side effects and signs and symptoms that would warrant calling office. Follow up routine. Assessment & Plan (11/26/2019 10:15 AM CDT): Patient is to continue present medications, work on diet and exercise as discussed, we did discuss the medications and potential side effects and signs and symptoms that would warrant calling office. Follow up routine. Paroxysmal atrial fibrillation 04/06/2015 Assessment & Plan (08/09/2023 8:44 AM SUPPLY PERSON): This is a stable chronic condition continue current meds follow-up with Cardiology Assessment & Plan (07/19/2023 12:25 PM SUPPLY PERSON): Patient is stable asymptomatic and followed by cardiology Assessment & Plan (12/27/2022 1:46 PM CDT): Patient is stable and asymptomatic continue current meds follow-up routine Assessment & Plan (07/04/2022 11:22 AM SUPPLY PERSON): This is well controlled and patient is asymptomatic continue current meds follow-up with Cardiology routine Assessment & Plan (11/30/2020 9:02 AM CDT): This is stable, patient is on aspirin and seen Cardiology, follow-up routine Diastolic dysfunction 04/06/2015 History of coronary artery bypass surgery 2014 Abnormal cardiovascular stress test 04/06/2015 Triple vessel coronary artery disease 02/12/2015 Assessment & Plan (08/09/2023 8:44 AM SUPPLY PERSON): Patient is stable asymptomatic and followed by cardiology encourage activity status post left knee replacement Assessment & Plan (07/19/2023 12:25 PM SUPPLY PERSON): Patient is stable and followed by cardiology Assessment & Plan (12/27/2022 1:47 PM CDT): Patient is stable and asymptomatic. Follow-up with Cardiology Assessment & Plan (07/04/2022 11:23 AM SUPPLY PERSON): This is stable and patient is asymptomatic continue current meds follow-up with Cardiology Assessment & Plan (12/23/2021 11:53 AM CDT): Patient is stable and followed by cardiology Assessment & Plan (11/30/2020 9:03 AM CDT): Patient is stable and seen Cardiology. He is on an aspirin and a statin. Follow- up routine Assessment & Plan (01/06/2019 4:15 AM CDT): Continue ASA, statin, BB. Resolved Problems Problem Noted Date Diagnosed Date Resolved Date Hyperlipidemia 04/06/2015 05/16/2019 Assessment & Plan (01/06/2019 4:22 AM CDT): Continue statin. Immunizations Immunization Administration Dates Next Due Influenza, Quadrivalent, Hig h Dose, Preservative Free, Intrr 03/09/2023,03/25/2022,04/06/2020 Influenza, Trivalent, High D ose, Split, Preservative Free, Intramuscular 05/22/2019,07/13/2018 Influenza, Unspecified 03/09/2023,2021,04/21/2021,04/06,07/13/2018,03/05/2015 Moderna SARS-CoV-2 Monovalen t Vaccination (12+ YRS) 08/12/2020,07/15/2020 Pneumococcal Conjugate PCV 13 11/30/2020 Pneumococcal Polysaccharide PPV23 07/15/2016 RSV Vaccine, Pref, Recombina nt, Subunit, Adjuvanted, PF, IM (Arexvy) 03/09/2023 TD Preservative Free 06/23/2014 ZOSTER LIVE 06/23/2014 Social History Tobacco Use Types Packs/Day Years Used Date Smoking Tobacco: Former Vaping Smokeless Tobacco: Never Tobacco Cessation:Counseling Given: Not Answered Alcohol Use Standard Drinks/Week Comments Never 0 (1 standard drink = 0.6 oz pur e alcohol) AUDIT-C Answer Date Recorded Q1: How often do you have a drink containing alc ohol? Monthly or less 08/09/2023 Q2: How many drinks containi ng alcohol do you have on a typical day when you are drinking? 1 or 2 08/09/2023 Frequency of Binge Drinking Not on file 07/14 PHQ-2 Answer Date Recorded PHQ-2 Total Score (If total score is 3 or more points, staff should administer the PHQ-9) 0 08/02/2023 Personal Safety Answer Date Recorded Have you ever been in or are you currently in a harmful physical or emotional relationship or is someone making you feel afraid or unsafe? Denies 07/13/2023 Sex and Gender Information Value Date Recorded Sex Assigned at Not on file Legal Sex Male 6:25 AM SUPPLY PERSON Gender Identity Male 05/22/2020 10:26 AM SUPPLY PERSON Sexual Orientation Not on file Last Filed Vital Signs Vital Sign Reading Time Taken Comments Blood Pressure 126/70 10/18/2024 9:18 AM CDT Pulse 86 10/18/2024 9:18 AM CDT Temperature 37.8 C (100 F) 10/18/2024 9:18 AM CDT Respiratory Rate 20 10/18/2024 9:18 AM CDT Oxygen Saturation 99% 10/18/2024 9:18 AM CDT Inhaled Oxygen Concentration - - Weight 105.7 kg (233 lb) 10/18/2024 9:18 AM CDT Height 172.7 cm (5' 8 ) 10/18/2024 9:18 AM CDT Body Mass Index 35.43 10/18/2024 9:18 AM CDT Plan of Treatment Not on file Procedures Procedure Name Priority Date/Time Associated Diagnosis Comments POC INFLUENZA A/B, COVID-19 ANTIGEN Routine 10/18/2024 9:42 AM CDT Lower respiratory infection (e.g., bronchitis, pneumonia, pneumonitis, pulmonitis) POC INFLUENZA A/B, COVID-19 ANTIGEN Routine 09/30/2024 9:55 AM CDT Acute cough EGFR Routine 09/04/2024 12:56 PM CDT VITAMIN D 25 HYDROXY Routine 09/04/2024 12:56 PM CDT ALBUMIN CREATININE RATIO, URINE Routine 09/04/2024 12:56 PM CDT HEMOGLOBIN A1C Routine 09/04/2024 12:56 PM CDT T4, FREE Routine 09/04/2024 12:56 PM CDT TSH Routine 09/04/2024 12:56 PM CDT COMPREHENSIVE METABOLIC PANEL Routine 09/04/2024 12:56 PM CDT LIPID PANEL Routine 09/04/2024 12:56 PM CDT DIABETIC EYE EXAM Routine 12/22/2022 COLONOSCOPY Routine 07/18/2019 US ABDOMINAL AORTA 06/20/2019 9: 21 AM SUPPLY PERSON HEPATITIS C ANTIBODY Routine 05/22/2019 9:13 AM SUPPLY PERSON Need for hepatitis C screening test from Last 3 Months or Most Recently Relevant to Health Maintenance Results * POC Influenza A/B, COVID-19 antigen (10/18/2024 9:42 AM CDT) Influenza A Ag, POC Negative Negative [facility] Influenza B Ag, POC Negative Negative [facility] COVID-19 Ag POC Presumptive Negative Presumptive Negative, Invalid [facility] Nasal 10/18/2024 9:42 AM CDT Emilia Aguilar NP POINT OF CARE TEST ORDERABLES Final Result Performing Organization Address City/[facility] de Phone Number [facility] [address] [place] [address] * POC Influenza A/B, COVID-19 antigen (09/30/2024 9:55 AM CDT) Influenza A Ag, POC Negative Negative [facility] Influenza B Ag, POC Negative Negative [facility] COVID-19 Ag POC Presumptive Negative Presumptive Negative, Invalid [facility] Nasal 09/30/2024 9:55 AM CDT Josef Mueller NP POINT OF CARE TEST ORDERABLES F inal Result Performing Organization Address City/State/[facility] Co de Phone Number [facility] [address] [place] [address], [facility] * eGFR (09/04/2024 12:56 PM CDT) eGFR >90 >=60 mL/min/1. 73 m2 Comment: Interpretive Data Reference Interval Normal >/= 90 mL/min/1.73m2 Mildly decreased* 60 - 89 mL/min/1.73m2 Mildly to moderately decreased 45 - 59 mL/min/1.73m2 Moderately to severely decreased 30 - 44 mL/min/1.73m2 Severely decreased 15 - 29 mL/min/1.73m2 Kidney Failure < 15 mL/min/1.73m2 *Relative to young adult level Estimated glomerular filtration rate is determined by the 2020 CKD-EPI equation recommended by the National Kidney Foundation (A Unifying Approach to GFR Estimation: Recommendations of the NKF-ASK Task Force on Reassessing the Inclusion of Race in Diagnosing Kidney Disease, JASN 2020). The CKD-EPI equation should not be used for patients with unstable renal function and has not been validated in children and those over 70. Current interpretive data was last reviewed 2021. Testing performed by: [address] [address] Blood 09/04/2024 12:5 6 PM CDT 09/04/2024 2:09 PM CDT Kam YING LAB BLOOD ORDERABLES Final Resu lt Performing Organization Address [facility] Co de Phone Number [facility] [address] [facility] Department [place] [address] * Albumin Creatinine Ratio, Urine (09/04/2024 12:56 PM CDT) Albumin Ur <12.0 mg/L Comment: Interpretive Data No reference range established. Current interpretive data was last revised 2018. Testing performed by: [address] [address] Creatinine Ur 94.9 mg/dL JADA WRIGHT Comment: Interpretive Data No reference range established. Current interpretive data was last revised 2018. Testing performed by: [facility], [address] [place] [address]., [id number] Albumin Creatinine Ratio, Ur <13 1 - 29 mg/g JADA Comment:Testing performed by : [facility], [address] [place] [address]., [id number] Urine 09/04/2024 12:5 6 PM CDT 09/04/2024 2:09 PM CDT Kam YING LAB URINE ORDERABLES Final Resu lt Performing Organization Address [facility] Co de Phone Number [facility] [place] [address] * Vitamin D 25 hydroxy (09/04/2024 12:56 PM CDT) Vitamin D 25-OH 34.0 30.0 - 80.0 ng/mL Blood 09/04/2024 12:5 6 PM CDT 09/04/2024 2:58 PM CDT Kam YING LAB BLOOD ORDERABLES Final Resu lt Performing Organization Address [facility] Co de Phone Number [facility] [place] [address] * TSH (09/04/2024 12:56 PM CDT) Thyroid Stimulating Hormone 2.41 0.30 - 4.20 mcIUnit/mL Comment:Testing performed by : [facility], [address] [place] [address]., [id number] Blood 09/04/2024 12:5 6 PM CDT 09/04/2024 2:09 PM CDT Kam YING LAB BLOOD ORDERABLES Final Resu lt Performing Organization Address City/[facility] Co de Phone Number [facility] [place] [address] * T4, free (09/04/2024 12:56 PM CDT) Free T4 1.28 0.90 - 1.70 ng/dL Comment:Testing performed by : [address] [address] Blood 09/04/2024 12:5 6 PM CDT 09/04/2024 2:09 PM CDT Kam YING LAB BLOOD ORDERABLES Final Resu lt [facility] [address] [facility] [place] [address] * (ABNORMAL) Hemoglobin A1c (09/04/2024 12:56 PM CDT) [facility] Hgb A1C 6.1(H) 4.0 - 5.6 % Comment:Testing performed by : [address] [address] Estimated Average Glucose 128 mg/dL JADA WRIGHT Comment: The ADA recommends reporting an estimated Average Glucose (eAG) with all Hemoglobin A1c results using the equation derived from a study of 507 normal and diabetic adults. Minority populations were underrepresented and children were not included. (Diabetes Care 31:9297-4164, 2008). The eAG is not equivalent to a fasting glucose. Testing performed by: [address] [address] Blood 09/04/2024 12:5 6 PM CDT 09/04/2024 2:07 PM CDT
--- OUTSIDE RECORDS SUMMARY | 2024-10-22 14:17 | XMS_ITS | Encounter Summary ---
Author Organization [facility] Facility Care Team Providers Care Art Class Model Name Role Phone Kam Gillette Primary Care Provider [phone] Elif Redman LPN Unavailable [phone] Ralph De Jesus MD Unavailable [phone] Sarah Fairbanks RN Unavailable Unavailable Ava Richards RN Unavailable [phone] Sarah Fairbanks RN Unavailable Unavailable Sarah Fairbanks RN Unavailable Unavailable Andra Canada RN Unavailable Unavailab Encounter Details Date Type Department Care Team (Latest Contact Info) Description 02/02/2015 Orders Only [facility]INCONV Provider, MD Tony [address] [place] [id number] Social History Tobacco Use Types Packs/Day Years Used Date Smoking Tobacco: Never Assessed Sex and Gender Information Value Date Recorded Sex Assigned at Not on file Legal Sex Male 6:25 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[employer] 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 Gender Identity Male 05/22/2020 10:26 AM 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UM SHEET Sexual Orientation Not on file documented as of this encounter Plan of Treatment Not on file documented as of this encounter Procedures Procedure Name Priority Date/Time Associated Diagnosis Comments CARDIOLOGY REPORT 06/16/2016 12: 00 AM 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UM SHEET CARDIOLOGY REPORT 06/16/2016 12: 00 AM 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UM SHEET documented in this encounter Results * CARDIOLOGY REPORT (06/16/2016 12:00 AM 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UM SHEET) Anatomical Region Laterality Modality Other Narrative 06/16/2016 12:00 AM 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UM SHEET Ordered by an unspecified provider. us Historical Provider [facility] CARDIAC SERVICES PROCE DURES Final Result * CARDIOLOGY REPORT (06/16/2016 12:00 AM 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UM SHEET) Anatomical Region Laterality Modality Other Narrative 06/16/2016 12:00 AM 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UM SHEET Ordered by an unspecified provider. us Historical Provider CV CARDIAC SERVICES PROCE DURES Final Result documented in this encounter Visit Diagnoses Not on filedocumented in this encounter Additional Health Concerns Infection Onset Date Last Indicated Resolved Time COVID: Suspected 12/22/2020 12/22/2020 12/23/2020 4:29 AM CDT COVID: Suspected 09/30/2024 09/30/2024 09/30/2024 9:56 AM CDT COVID: Suspected 10/18/2024 10/18/2024 10/18/2024 9:44 AM CDT documented as of this encounter Care Teams Art Class Model Relationship Specialty Start Date End Date Kam Gillette PA PCP - General 10/05/18 Elif Redman LPN Product Architect 01/08/19 01/08/19 Ralph De Jessu MD Referring Physician Cardiology 03/21/22 Sarah Fairbanks, fiberglass model makerGeneral Office Assistant Cardiology 03/21/22 07/12/23 Ava Richards, RN [phone] [address] General Office Assistant Cardiology 03/21/22 Sarah Fairbanks, ski molder Failure Coordinator 06/29/23 4 Sarah Fairbanks, ski molder Failure Coordinator Transplant 07/12/23 Andra Canada RN Heart Failure Coordinator Cardiology 07/25/24 documented as of this encounter
--- OUTSIDE RECORDS SUMMARY | 2024-10-22 14:17 | XMS_ITS | Continuity of Care Document ---
Author Organization [place] [facility] Address [address] [facility] [address] [place] [address] Assessment No assessment recorded. Plan of Treatment Reminders Order Date Submit Date Provider Last Modified By Organization Details Last Modified Time Details Appointments ANY 15 2024 09:45A M STEPAN Grier Not available Not available Not available Lab CBC w/ diff 2024 025 [email or web address] [facility] [place] [address], [place], [address], 10/21/2024 17:30:05 Referral None recorded . Procedures None recorded . Surgeries None recorded . Imaging None recorded . Medication Orders Medrol (Noel) 4 mg tablets in a dose pack 2024 025 [id number], [address], [place], [place], [id number], 10/21/2024 16:54:55 Patient TargetsNo targets recorded. Patient InstructionsNo instructions recorded. Reason for Referral None Reported. Problems Name Problem SNOMED Code Status Onset Date Resolution Date Notes Provider Name and Address Organization Details Recorded Time Coronary artery bypass graft stent present 9541286689115 04 Active 2024 MAXIM Hernandez, WINDY Pena S[facility] 5 09:48:51 Obstructive sleep apnea syndrome 41969349 Active 2024 MAXIM Hernandez, WINDY Pena S[facility] 5 09:48:52 Adult health examination Active 2024 MAXIM Hernandez, WINDY - [facility] 5 09:48:54 Atrial fibrillatio n 72351871 Active 2024 Raina Howell MA null, [place] - [facility] 5 09:48:55 Hyperlipide adriana 10611467 Active 2024 Raina Howell [place], [place] [facility] 5 09:49:04 Essential hypertensio n 43878498 Active 2024 Raina Howell [place], [place] [facility] 5 09:49:07 Type 2 diabetes mellitus without complicatio n 215009153 Active 2024 Raina Howell [place], [place] [facility] 5 09:49:08 Coronary arterioscle rosis 48685300 Active 2024 Raina Howell [place], [place] [facility] 5 09:49:11 Hypothyroid ism 23987629 Active 2024 Garcia Ceron MA null, [place] - [facility] 5 10:13:37 Problem Notes None recorded. Medical Equipment None Reported. Allergies No known drug allergies Medications Name Sig Start Date Stop Date Status Note LastModified by Organization Details LastModified Time amoxicillin 500 mg capsule TK FOUR CS PO 1 HOUR B DAPP 08/21 completed Not Available Not Available Not Available atorvastati n 40 mg tablet Take 1 tablet every day by oral route. active Not Available Not Available No t Available carvedilol 25 mg tablet Take 1 tablet twice a day by oral route. active Not Available Not Available No t Available azithromyci n 250 mg tablet TAKE 2 TABLETS BY MOUTH FOR 1 DAY THEN TAKE 1 TABLET BY MOUTH DAILY FOR 4 DAYS active Not Available Not Available No t Available benzonatate 200 mg capsule TAKE ONE CAPSULE BY MOUTH THREE TIMES DAILY NEEDED FOR COUGH active Not Available Not Available No t Available Medrol (Noel) 4 mg tablets in a dose pack Take 1 dose pk by oral route. 2024 active Not Available Not Available Not Avai lable ciclopirox 8 % topical solution APPLY TOPICALLY TO TOE NAILS DAILY active Not Available Not Available No t Available levothyroxi ne 100 mcg tablet Take 1 tablet every day by oral route for 90 days. 2024 active Not Available Not Available Not Avai lable Zovirax 200 mg capsule Take 1 capsule every 4 hours by oral route. active Not Available Not Available No t Available nitroglycer in 0.[address] by sublingua l route. active Not Available Not Available No t Available ramipril 10 mg capsule TAKE 1 CAPSULE BY MOUTH EVERY DAY active Not Available Not Available No t Available levothyroxi ne 100 mcg capsule TAKE 1 CAPSULE BY MOUTH EVERY DAY 08/23 completed Not Available Not Available Not Available aspirin 81 mg capsule Take 1 capsule every day by oral route. active Not Available Not Available No t Available Vitals Date Recorded Body height Body mass index (BMI) Body weight Oxygen saturation Oxygen saturation in Arterial blood by Pulse oximetry Heart rate Systolic blood pressure Diastolic blood pressure Provider Name and Address Organization Details Last Updated DateTime 5 172.72 cm 33.8 kg/m2 283859. 31 g 93 % 93 % 66 /min 132 mm[Hg] 84 mm[Hg] Liana Wade LPN [place] 5 16:45:50 Social History Question Answer Notes LastModified by Avenue Right Details LastModified Time Tobacco Smoking Status Former Smoker MAXIM [place] 08/21/2024 11:12:36 What Is Your Level Of Caffeine Consumption? Occasional Information not available 02/22/2024 What Was The Date Of Your Most Recent Tobacco Screening? 10/21/2024 [email or web address] Information not available 10/21/2024 At What Age Did You Start Smoking Tobacco? 34 Information not available 08/21/2024 How Many Years Have You Smoked Tobacco? 3 Information not available 08/21/2024 Sex: Male Functional Status Question Answer Note LastModified by Avenue Right Details LastModified Time Do you or have you ever used any other forms of tobacco or nicotine? No Information not available 08/21/2024 What is your level of alcohol consumption? Occasional Information not available 02/22/2024 Mental Status None recorded. Family History Nothing Reported. Medical History No medical history recorded. Immunizations Vaccine Type Date Status Note Provider Nam e and Address Organization Details Recorded Time Influenza, high-dose, quadrivalent, PF 3 completed MAXIM [place] [facility] 08/21/2024 11:11:34 Influenza, high-dose, quadrivalent, PF 2 completed [facility], [place] - [facility] 08/21/2024 11:11:34 Influenza, high-dose, quadrivalent, PF 0 completed [place], [place] - [facility] 08/21/2024 11:11:34 COVID-19, mRNA, LNP-S, PF, 100 mcg/0.5mL dose or 50 mcg/0.25mL dose 1 completed [facility], [place] [facility] 08/21/2024 11:11:34 COVID-19, mRNA, LNP-S, PF, 100 mcg/0.5mL dose or 50 mcg/0.25mL dose 1 completed [facility], [place] [facility] 08/21/2024 11:11:34 COVID-19, mRNA, LNP-S, PF, 100 mcg/0.5mL dose or 50 mcg/0.25mL dose 2 completed [facility], [place] [facility] 08/21/2024 11:11:34 COVID-19, mRNA, LNP-S, PF, 100 mcg/0.5mL dose or 50 mcg/0.25mL dose 1 completed [facility], [place] [facility] 08/21/2024 11:11:34 RSV, recombinant, protein subunit RSVpreF, adjuvant reconstituted, 0.5 mL, PF 3 completed [facility], [place] [facility] 08/21/2024 11:11:34 COVID-19, mRNA, LNP-S, PF, 50 mcg/0.5 mL 3 completed [facility], [place] [facility] 08/21/2024 11:11:34 influenza, unspecified formulation 1 completed [facility], [place] - [facility] 08/21/2024 11:11:34 Pneumococcal conjugate PCV 13 1 completed [place] [facility] 08/21/2024 11:11:34 Influenza, high-dose, trivalent, PF 9 completed [place] [facility] 08/21/2024 11:11:35 Influenza, high-dose, trivalent, PF 9 completed [place] [facility] 08/21/2024 11:11:35 COVID-19, mRNA, LNP-S, PF, 50 mcg/0.5 mL 4 completed [place] [facility] 08/21/2024 11:11:40 Influenza, high-dose, trivalent, PF 4 completed [facility], [place] - [facility] 08/21/2024 11:11:40 Past Encounters Encounter ID Performer Location Encounter Start Date Encounter Closed Date Diagnosis/Indication Diagnosis SNOMED-CT Code Diagnosis ICD10 Code Diagnosis Note [id number] Wally Driver, [facility] [address] [address] 10/21/2024 16:35:26 10/22/2024 08:45:02 Atrial fibrillation 03835353 I48.91 As above Essential hypertension 23935139 I10 Take meds as ordered. Decrease caffeine and salt intake, work on diet and weight loss. Aerobic exercise 4 times per week for 30 min. Call for elevated blood pressures. Hyperlipidemia 40953296 E78.5 Increase physical activity, heart healthy diet, drink water Eat a variety of foods every day. Good choices include fruits, vegetables , whole grains (like oatmeal), dried beans and peas, and nuts and seeds. Other good choices are soy products (like tofu) and fat-free or low-fat dairy products. Use olive and canola oils instead of butter, margarine, or hydrogenat ed or partially hydrogenat ed oils. (Canola oil margarine without trans fat is fine.) Replace red meat with fish, poultry, and soy protein (like tofu). Limit processed and packaged foods like chips, crackers, and cookies. Bake, broil, or steam foods instead of frying them. Be physically active. Get plenty of exercise every day. Go for a walk or jog, ride your bike, or play sports with friends. Stay at a healthy weight or lose weight by making the changes in eating and physical activity listed above. Losing just a small amount of weight, even 5 to 10 pounds, can reduce your risk for having a heart attack or stroke. Do not smoke. Smoking can increase the chance you will have a heart attack. If you need help quitting, talk to your doctor about stop-smoki ng programs and medicines. These can increase your chances of quitting for good. If you take medicine for high cholestero l, be sure to take it every day. Hypothyroidism 64731503 E03.9 Obstructiv e sleep apnea syndrome 43535446 G47.33 Encourage C-Pap/oral device, f/u with sleep clinic Type 2 joe betes mellitus 13888770 E11.9 This is a well controlled chronic condition continue current treatment plan follow up six-month Check blood sugars as directed , record and bring on visit. yearly dilated eye exam. check feet daily and report calluses, corns or ulcers. 30 minutes exercise daily Diabetic diet, conservati ve carbohydra isaias, low in fat, high fiber, whole grains, lean meat Persistent cough 6359654 02 R05.3 this is 3rd visit and still with fevers, getting cbc and CXR, I am going to add steroids and let him finish zithromax as he looks fine in clinic Health Concerns Section Related Observation LastModified by Organization Detai ls LastModified Time None Recorded Concern Status LastModified by Organization Details LastModified Time None Recorded Payers Encounter Date Sequence Insurance Name Policy Number Policy Mullins Covered Member ID Mullins Member ID Guarantor Name 10/21/2024 1 [place] Dion Gillette [id number] Dion Gilltete 10/21/2024 2 [employer] - FOR LIFE (MEDICARE SUPPLEMENT) Dion Gillette [id number] Dion Gillette Notes Date Note Type Note Provider Name and Address Organization Details Recorded Time 5 text/html Patient in for 6 month f/u for the following-Exercise: some walking-colonoscopy: 4 years ago-shingles: UTD-Pneumococcal 13 and 23: UTD-flu: today-Covid 19: UTD + booster-specialist: Dr De Jesus CardiologyDr Andersen ENT/OSAObstructive sleep apnea syndromeOn C-PAPTriple vessel coronary artery disease- stable, seeing cardiology, doing well, on ASA and statinWeight gain, abnormal- watching dietParoxysmal atrial fibrillation (CMS/HCC)Stable, no CP or SOB, seeing cardiologyOther specified hypothyroidismTaking medications, no issuesObesity (BMI 30-39.9)Trying to watch diet and exerciseHyperlipidemia, unspecified hyperlipidemia type-Taking medications, watching diet, no muscle painsEssential hypertension-taking medications and feeling good, on ASAType 2 diabetes mellitus without complication, without long-term current use of insulin (CMS/HCC)Off medications, diet controlled Last A1C:{{less than 7.0% 7-8% 8-9% greater than 9% 6.0#}} At minimum risk for fallNo fallsASCVD (arteriosclerotic cardiovascular disease)On asa and statinBad cough: this first started end of september, started with bad cough, non-productive, slowly getting better, seen at [place] [address] and treated with erythromycin which he is almost done, Had fevers up to 103, responded to tylenol, last fever this am 100.0. STEPAN Grier Attn: Accounting,[address] [facility], [place], [address], [place] - [facility] 10/21/2024 17:39:50
--- OUTSIDE RECORDS SUMMARY | 2024-10-22 14:17 | XMS_ITS | Encounter Summary ---
Author Organization [facility] Facility Care Team Providers Care Remedial Project Manager Name Role Phone Kam Gillette Primary Care Provider [phone] Elif Redman LPN Unavailable [phone] Ralph De Jesus MD Unavailable [phone] Sarah Fairbanks RN Unavailable Unavailable Ava Richards RN Unavailable [phone] Sarah Fairbanks RN Unavailable Unavailable Sarah Fairbanks RN Unavailable Unavailable nAdra Canada RN Unavailable Unavailab Encounter Details Date Type Department Care Team (Latest Contact Info) Description 01/15/2015 Orders Only [facility]INCONV Provider, MD Tony [address] [place] [address] Social History Tobacco Use Types Packs/Day Years Used Date Smoking Tobacco: Never Assessed Sex and Gender Information Value Date Recorded Sex Assigned at Not on file Legal Sex Male 6:25 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 us Historical Provider [facility] BATSHEVA AHMADI Final Result documented in this encounter Visit Diagnoses Not on filedocumented in this encounter Additional Health Concerns Infection Onset Date Last Indicated Resolved Time COVID: Suspected 12/22/2020 12/22/2020 12/23/2020 4:29 AM CDT COVID: Suspected 09/30/2024 09/30/2024 09/30/2024 9:56 AM CDT COVID: Suspected 10/18/2024 10/18/2024 10/18/2024 9:44 AM CDT documented as of this encounter Care Teams Remedial Project Manager Relationship Specialty Start Date End Date Kam Gillette PA PCP - General 10/05/18 Elif Redman LPN Message And Delivery Service Pricer 01/08/19 01/08/19 Ralph De Jesus MD Referring Physician Cardiology 03/21/22 Sarah Fairbanks, building adminTool And Gauge Inspector Cardiology 03/21/22 07/12/23 Ava Richards, RN [address] [address] Tool And Gauge Inspector Cardiology 03/21/22 Sarah Fairbanks, milling/polishing operator Failure Coordinator 06/29/23 4 Sarah Fairbanks, milling/polishing operator Failure Coordinator Transplant 07/12/23 Andra Canada RN Heart Failure Coordinator Cardiology 07/25/24 documented as of this encounter
--- OUTSIDE RECORDS SUMMARY | 2024-10-22 14:17 | XMS_ITS | Data Portability ---
Author Organization [facility] Address [address] [place] [address] Assessment No assessment recorded. Plan of Treatment Reminders Order Date Submit Date Provider Last Modified By Organization Details Last Modified Time Details Appointments ANY 2024 09:45A M STEPAN Grier Not available Not available Not available Lab CBC w/ diff 2024 025 [email or web address] [facility] [place] [address] , [place], [address], 10/21/2024 17:30:05 vitamin D, 25-hydro xy, total, serum [address] Outpatient Lab, [address] [place] [address], [id number], 09/11/2024 09:59:50 HbA1c (hemoglo bin A1c), blood [address] [facility] Out[facility], [address] [place] [address], [id number], 08/21/2024 11:50:38 microalb umin/cre atinine, mass ratio, urine [address] [facility], [address] [place] [address], [id number], 08/21/2024 11:50:38 lipid panel, serum [address] [facility], [address] [place] [address], [id number], 08/21/2024 11:50:38 CMP, serum or plasma [address] [facility], [address] [place] [address], [id number], 08/21/2024 11:50:39 TSH + free T4, serum [address] Outpatient Lab, [address] [place] [address], [id number], 09/11/2024 09:59:40 PSA, total + free, serum or plasma [address] [facility], [address] [place] [address], [id number], 09/11/2024 12:05:25 HbA1c (hemoglo bin A1c), blood [address] [facility], [address] [place] [address], [id number], 09/11/2024 12:05:25 microalb umin/cre atinine, mass ratio, urine [address] Outpatient Lab, [address] [place] [address], [id number], 09/11/2024 09:58:42 CMP, serum or plasma [address] Outpatient Lab, [address] [place] [address], [id number], 09/11/2024 09:43:03 lipid panel, serum [address] Outpatient Lab, [address] [place] [address], [id number], 09/11/2024 09:43:12 Referral None recorded . Procedures None recorded . Surgeries None recorded . Imaging None recorded . Medication Orders Medrol (Noel) 4 mg tablets in a dose pack 2024 025 [id number], [address], [place], [place], [id number], 10/21/2024 16:54:55 Patient TargetsNo targets recorded. Patient Instructions Encounter Date Encounter Id Patient Instructions Last Modified By Organization Details Last Modified Time 08/21/2024 [id number] A healthy lifestyle: care instructions [email or web address] Not available 08/21/2024 11:25:48 Reason for Referral None Reported. Results Created Date Observation Date Name Description Value Unit Range Abnormal Flag Note LastModifiedBy Organization Detail LastModifiedTime Result Notes None recorded. Problems Name Problem SNOMED Code Status Onset Date Resolution Date Notes Provider Name and Address Organization Details Recorded Time Coronary artery bypass graft stent present 0022501944995 04 Active 2024 MAXIM [place], [place] - [facility] 5 09:48:51 Obstructive sleep apnea syndrome 99119515 Active 2024 AMXIM [place] [facility] 5 09:48:52 Adult health examination Active 2024 MAXIM [place] [facility] 5 09:48:54 Atrial fibrillatio n 47132380 Active 2024 MAXIM [place] [facility] 5 09:48:55 Hyperlipide adriana 75107370 Active 2024 MAXIM [place] [facility] 5 09:49:04 Essential hypertensio n 56037347 Active 2024 MAXIM [place] [facility] 5 09:49:07 Type 2 diabetes mellitus without complicatio n 031053554 Active 2024 MAXIM [place] [facility] 5 09:49:08 Coronary arterioscle rosis 34062753 Active 2024 MAXIM [place] [facility] 5 09:49:11 Hypothyroid ism 66627248 Active 2024 MXAIM [place], [place] - [facility] 5 10:13:37 Problem Notes [...] and Address Organization Details Last Updated DateTime 4 172.72 cm 35.1 kg/m2 647114. 19 g 97 % 97 % 50 /min 132 mm[Hg] 78 mm[Hg] Susan Wade LPN [place] - [facility] 4 09:08:43 Date Recorded Body height Body mass index (BMI) Body weight Oxygen saturation Oxygen saturation in Arterial blood by Pulse oximetry Heart rate Respiratory rate Systolic blood pressure Diastolic blood pressure Provider Name and Address Organization Details Last Updated DateTime 5 172.72 cm 35.4 kg/m2 270586. 02 g 97 % 97 % 64 /min 14 /min 130 mm[Hg] 68 mm[Hg] [facility] 5 11:17:31 Date Recorded Body height Body mass index (BMI) Body weight Oxygen saturation Oxygen saturation in Arterial blood by Pulse oximetry Heart rate Systolic blood pressure Diastolic blood pressure Provider Name and Address Organization Details Last Updated DateTime 5 172.72 cm 33.8 kg/m2 534746. 31 g 93 % 93 % 66 /min 132 mm[Hg] 84 mm[Hg] Liana Wade LPN [facility] 5 16:45:50 Social History Question Answer Notes LastModified by [employer] Details LastModified Time Tobacco Smoking Status Former Smoker Garcia Ceron MAXIM kaylyn [facility] 08/21/2024 11:12:36 What Is Your Level Of [...] Functional Status Question Answer Note LastModified by [employer] Details LastModified Time Do you or have [...] Time Influenza, high-dose, quadrivalent, PF 3 completed Garcia Ceron MAXIM kaylyn [facility] 08/21/2024 11:11:34 Influenza, high-dose, quadrivalent, PF 2 completed [facility], [place] - [facility] 08/21/2024 11:11:34 Influenza, high-dose, quadrivalent, PF 0 completed [facility] [facility] 08/21/2024 11:11:34 COVID-19, mRNA, LNP-S, PF, 100 mcg/0.5mL dose or 50 mcg/0.25mL dose 1 completed [facility], [place] - [facility] 08/21/2024 11:11:34 COVID-19, mRNA, LNP-S, PF, 100 mcg/0.5mL dose or 50 mcg/0.25mL dose 1 completed [facility] [place], [place] [facility] 08/21/2024 11:11:34 COVID-19, mRNA, LNP-S, PF, 100 mcg/0.5mL dose or 50 mcg/0.25mL dose 2 completed [facility], [place] [facility] 08/21/2024 11:11:34 COVID-19, mRNA, LNP-S, PF, 100 mcg/0.5mL dose or 50 mcg/0.25mL dose 1 completed [facility] [place], [place] [facility] 08/21/2024 11:11:34 RSV, recombinant, protein subunit RSVpreF, adjuvant reconstituted, 0.5 mL, PF 3 completed [facility] [place] [facility] 08/21/2024 11:11:34 COVID-19, mRNA, LNP-S, PF, 50 mcg/0.5 mL 3 completed [facility] [place] [facility] 08/21/2024 11:11:34 influenza, unspecified formulation 1 completed [place] [facility] 08/21/2024 11:11:34 Pneumococcal conjugate PCV 13 1 completed [place] [facility] 08/21/2024 11:11:34 Influenza, high-dose, trivalent, PF 9 completed Garcia [place] [facility] 08/21/2024 11:11:35 Influenza, high-dose, trivalent, PF 9 completed [place] [facility] 08/21/2024 11:11:35 COVID-19, mRNA, LNP-S, PF, 50 mcg/0.5 mL 4 completed [place] [facility] 08/21/2024 11:11:40 Influenza, high-dose, trivalent, PF 4 completed [facility] [place] [facility] 08/21/2024 11:11:40 Past Encounters Encounter ID Performer Location Encounter Start Date Encounter Closed Date Diagnosis/Indication Diagnosis SNOMED-CT Code Diagnosis ICD10 Code Diagnosis Note [id number] Wally Driver, [facility] [address] [facility] [address] [place] [address] 02/22/2024 08:38:13 02/26/2024 13:00:46 Adult health examination 311021688 Z00.00 Healthy diet and exercise, HCM as discussed Obstructiv e sleep apnea syndrome 88887070 G47.33 Encourage C-Pap/oral device, f/u with sleep clinic Coronary a rtery bypass graft stent present 6618515537 75458 Z95.5 A stable chronic condition the patient is asymptomat and followed by Cardiology . We will continue to follow Atrial fibrillation 4943 6004 I48.91 As above Hyperlipidemia 66902123 E78.5 Increase physical activity, heart healthy diet, [...] be sure to take it every day. Essential hypertension 67882579 I10 Take meds as ordered. Decrease caffeine and salt intake, work on diet and weight loss. Aerobic exercise 4 times per week for 30 min. Call for elevated blood pressures. Type 2 joe betes mellitus without complication 996047228 E11.9 Check blood sugars as directed , record and bring on visit. yearly dilated eye exam. check feet daily and report callouses, corns or ulcers. 30 minutes exercise daily Diabetic diet, conservati ve carbohydra isaias, low in fat, high fiber, whole grains, lean meat Coronary arteriosclerosis 67731709 I25.10 This is a stable chronic condition patient is asymptomat ic we will continue to follow Screening for malignant neoplasm of prostate 078200935 Z12.5 [id number] Wally Driver, DO [facility] [address] [address] 08/21/2024 10:48:53 08/26/2024 08:09:36 Obstructive sleep apnea syndrome 25101438 G47.33 Encourage C-Pap/oral device, f/u with sleep clinic Coronary a rtery bypass graft stent present 0236208409 14658 Z95.5 A stable chronic condition the patient is asymptomat ic and followed by Cardiology . We will continue to follow Atrial fibrillation 3293 600 I48.91 As above Hyperlipidemia 69354062 E78.5 Increase physical activity, heart healthy diet, [...] be sure to take it every day. Essential hypertension 87057182 I10 Take meds as ordered. Decrease caffeine and salt intake, work on diet and weight loss. Aerobic exercise 4 times per week for 30 min. Call for elevated blood pressures. Type 2 joe betes mellitus without complication 485974025 E11.9 Check blood sugars as directed , record and bring on visit. yearly dilated eye exam. check feet daily and report callouses, corns or ulcers. 30 minutes exercise daily Diabetic diet, conservati ve carbohydra isaias, low in fat, high fiber, whole grains, lean meat Coronary arteriosclerosis 78011064 I25.10 This is a stable chronic condition patient is asymptomat ic we will continue to follow Obesity 692972702 E66.9 Hypothyroidism 37005205 E03.9 Vitamin D deficiency 347 62264 E55.9 [id number] Wally Driver, DO [facility] [address] [address] 10/21/2024 16:35:26 10/22/2024 08:45:02 Atrial fibrillation 95312815 I48.91 As above Essential hypertension 02319397 I10 Take meds as ordered. Decrease caffeine and salt intake, work on diet and weight loss. Aerobic exercise 4 times per week for 30 min. Call for elevated blood pressures. Hyperlipidemia 28067557 E78.5 Increase physical activity, heart healthy diet, [...] sure to take it every day. Hypothyroidism 57391880 E03.9 Obstructiv e sleep apnea syndrome 93545560 G47.33 Encourage C-Pap/oral device, f/u with sleep clinic Type 2 joe betes mellitus 71816281 E11.9 This is a well controlled chronic condition continue current treatment plan follow up six-month Check blood sugars as directed , record and bring on visit. yearly dilated eye exam. check feet daily and report calluses, corns or ulcers. 30 minutes exercise daily Diabetic diet, conservati ve carbohydra isaias, low in fat, high fiber, whole grains, lean meat Persistent cough 8347673 02 R05.3 this is 3rd visit and still with fevers, getting cbc and CXR, I am going to add steroids and let him finish zithromax as he looks fine in clinic Health Concerns Section Related Observation LastModified by Organization Detai ls LastModified Time None Recorded Concern Status LastModified by Organization Details LastModified Time None Recorded Advance Directives Directive None Recorded Payers Encounter Date Sequence Insurance Name Policy Number Policy Mullins Covered Member ID Mullins Member ID Guarantor Name 02/22/2024 1 [place] Dion Gillette [id number] Dion Carrilloer 02/22/2024 2 WPS - FOR LIFE (MEDICARE SUPPLEMENT) Dion Eddy Gillette [id number] Dion Carrilloer 08/21/2024 1 [place] Dion Carrilloer [id number] Dion Eddy Leta 08/21/2024 2 [employer]PS - FOR LIFE (MEDICARE SUPPLEMENT) Dion Eddy Gillette [id number] Dion Surjit Leta 10/21/2024 1 [place] Dion Carrilloer [id number] Dion Carrilloer 10/21/2024 2 [employer]PS - FOR LIFE (MEDICARE SUPPLEMENT) Dion Carrilloer [id number] Dion Carrilloer Notes Date Note Type Note Provider Name and Address Organization Details Recorded Time 4 text/html New patient in to establish with PCM and f/u for the following medical conditions Dion Gillette is a 73 y.o. year old White Non- male here an for Annual Wellness Visit.HPI:Patient is in for annual Medicare physical along with routine follow-up for the following medical conditions labs and medications.Diagnoses and all orders for this visit:Routine general medical examination at a health care facility (Primary)-[id number] se: some walking-colonoscopy: 4 years ago-shingles: UTD-Pneumococcal 13 and 23: UTD-flu: today-Covid 19: UTD + booster-specialist: Dr De Jesus CardiologyDr Andersen ENT/OSAScreening for depressionDenies depressionObstructive sleep apnea syndromeOn C-PAPTriple vessel coronary artery disease- stable, seeing cardiology, doing well, on ASA and statinWeight gain, abnormal- watching dietParoxysmal atrial fibrillation (CMS/HCC)Stable, no CP or SOB, seeing cardiologyOther specified hypothyroidismTaking medications, no issuesObesity (BMI 30-39.9)Trying to watch diet and exerciseHyperlipidemia, unspecified hyperlipidemia typeTaking medications, watching diet, no muscle painsEssential hypertension-taking medications and feeling good, on ASAType 2 diabetes mellitus without complication, without long-term current use of insulin ([facility])Off medications, diet controlled Last A1C:{{less than 7.0% 7-8% 8-9% greater than 9% 6.0#}} Goal A1C less than:{{7.0% 8.0%}} Current Therapy:{{metformin sulfony lurea TZD SGLT-2 DDP-4 GLP- 1 RA long-acting insulin rapid/short-acting insulin}} {{metformin sulfonylurea TZ D SGLT-2 DDP-4 GLP-1 RA long-acting insulin rapid/short-acting insulin}} {{metformin sulfonylurea TZ D SGLT-2 DDP-4 GLP-1 RA long-acting insulin rapid/short-acting insulin}} {{metformin sulfonylurea TZ D SGLT-2 DDP-4 GLP-1 RA long-acting insulin rapid/short-acting insulin}} Statin:{{yes no declined due to adverse reaction/allergy declined}} IVIS/ARB:{{yes no no due to negative nephropathy screening contraindicated d eclined due to adverse reaction/allergy declined}} Foot Exam:{{completed in the past 12 months-negative completed in the past 12 months-positive completed in the past 12 months- result unknown due}} Nephropathy Screening:{{completed in the past 12 months- negative completed in the past 12 months- positive due}} Pneumovax 23:{{UTD Declined Not given}} Eye Exam:{{completed in the last 12 months- negative completed in the last 12 months- positive completed per patient report due- recommended annual dilated eye exam}} Patient Education: healthy diet: {{yes no}} exercise: {{yes no}} weight loss: {{yes no}} foot care: {{yes no}} complications of uncontrolled diabetes: {{yes no}} medication compliance: {{yes no}} Next Visit: {{1 2 3 4 5 6 7 8 9 10 11 1 2}} {{week(s) month(s)}} At minimum risk for fallNo fallsASCVD (arteriosclerotic cardiovascular disease)On asa and statinMedicare Health Risk AssessmentBasic InformationIn general, would you say your health is: (P) GoodDo you have an advance directive, such as a living will or durable power of banking attorney?: (P) YesDo you have to strain or struggle to hear/understand conversations?: (!) (P) YesOver the last 2 weeks, how often have you been bothered by any of the following problems?Little Interest or Pleasure in Doing Things: (P) Not at allFeeling Down, Depressed, or Hopeless: (P) Not at allPHQ-2 Total Score (If total score is 3 or more points, staff should administer the PHQ-9): (P) 0In the past year, patient experienced:One or more falls in the last year: (P) NoDo you feel unsteady when standing or walking?: (P) NoDo you worry about falling?: (P) NoSafetyDo you have a working smoke detector in your home?: (P) YesDoes your home have throw rugs, poor lighting, or a slippery bath tub/shower?: (P) NoDo you always fasten your seatbelt when you are in a vehicle?: (P) YesWhat is your typical mode of transportation: (P) CarPhysical ActivityHow many days a week do you usually exercise?: (P) 0 - I do not exerciseHow intense is your typical exercise?: (P) I am currently not exercisingNutritionHow would you rate your appetite?: (P) GoodHow would you describe the condition of your mouth and teeth/dentures?: (P) GoodOn a typical day, how many servings of fruits and vegetables do you eat?: (P) N/AOn a typical day, how many servings of high fiber/whole-grain foods do you eat?: (P) N/AOn a typical day, how many servings of high fat/fried foods do you eat?: (P) N/AHave you experienced any of the following problems currently or recently?Eating: (P) NoGrooming: (P) NoBathing: (P) NoWalking: (P) NoUsing the toilet: (P) NoMemory problems: (P) NoDifficulty speaking: (P) NoDressing: (P) NoBalance: (P) NoPain: (P) NoSexual Health: (P) NoFatigue: (P) NoHave you experienced any of the following problems currently or recently?Laundry and/or housekeeping: (P) NoHandling money: (P) NoShopping: (P) NoUsing the Phone: (P) NoFood preparation: (P) NoTransportation: (P) NoTaking and/or getting your own medications: (P) NoDo you use prescription drugs that are not prescribed for you?: (P) NoDo you struggle with any of the following: depression, stress, anger, loneliness or social isolation?: (P) NoBased on my observation of the patient, review of Health Risk Assessment (HRA) and other records, this is my assessment and recommendation regarding fall risk, hearing impairment, home safety, ADLs, or any other issues identified in the HRA: discussedIncontinence AssessmentDo you ever have urine leak out involuntarily?: (P) No STEPAN Grier Attn: Accounting,[address] [place], [address], [facility] 02/22/2024 10:05:41 5 text/html Patient in for 6 month f/u for the following-Exercise: some walking-colonoscopy: 4 years ago-shingles: UTD-Pneumococcal 13 and 23: UTD-flu: today-Covid 19: UTD + booster-specialist: Dr De Jesus CardiologyDr Rhynn ENT/OSAObstructive sleep apnea syndromeOn C-PAPTriple vessel coronary [...] fallNo fallsASCVD (arteriosclerotic cardiovascular disease)On asa and statin STEPAN Grier Attn: Accounting,[address] [facility], [place], [address], [facility] 08/21/2024 11:50:26 5 text/html Patient in for 6 month f/u for the following-Exercise: some walking-colonoscopy: 4 years ago-shingles: UTD-Pneumococcal 13 and 23: UTD-flu: today-Covid 19: UTD + booster-specialist: Dr De Jesus CardiologyDr Rhynn ENT/OSAObstructive sleep apnea syndromeOn C-PAPTriple vessel coronary [...] cough, non-productive, slowly getting better, seen at [facility] x2 and treated with erythromycin which he is almost done, Had fevers up to 103, responded to tylenol, last fever this am 100.0. STEPAN Grier Attn: Accounting,[address] [facility], [place], [address], [facility] 10/21/2024 17:39:50
--- OUTSIDE RECORDS SUMMARY | 2024-10-22 14:17 | XMS_ITS | Encounter Summary ---
Author Organization [facility] Facility Care Team Providers Care Loan Secretary Name Role Phone Kam Gillette Primary Care Provider [phone] Elif Redman LPN Unavailable [phone] Ralph De Jesus MD Unavailable Sarah Fairbanks RN Unavailable Unavailable Ava Richards RN Unavailable [phone] Sarah Fairbanks RN Unavailable Unavailable Sarah Fairbanks RN Unavailable Unavailable Andra Canada RN Unavailable Unavailab Encounter Details Date Type Department Care Team (Latest Contact Info) Description 12/17/2014 Orders Only [facility] CLINCONV Provider, MD Tony [address] [place] [address] Social History Tobacco Use Types Packs/Day Years Used Date Smoking Tobacco: Never Assessed Sex and Gender Information Value Date Recorded Sex Assigned at Not on file Legal 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 us Historical Provider Final Res ult documented in this encounter Visit Diagnoses Not on filedocumented in this encounter Additional Health Concerns Infection Onset Date Last Indicated Resolved Time COVID: Suspected 12/22/2020 12/22/2020 12/23/2020 4:29 AM CDT COVID: Suspected 09/30/2024 09/30/2024 09/30/2024 9:56 AM CDT COVID: Suspected 10/18/2024 10/18/2024 10/18/2024 9:44 AM CDT documented as of this encounter Care Teams Loan Secretary Relationship Specialty Start Date End Date Kam Gillette PA PCP - General 10/05/18 Elif Redman LPN Manager Utilization Review 01/08/19 01/08/19 Ralph De Jesus MD Referring Physician Cardiology 03/21/22 Sarah Fairbanks, electric melt operatorCrop Adjuster Cardiology 03/21/22 07/12/23 Ava Richards, RN [address] [address] Crop Adjuster Cardiology 03/21/22 Sarah Fairbanks, toys and games hand finisher Failure Coordinator 06/29/23 4 Sarah Fairbanks, toys and games hand finisher Failure Coordinator Transplant 07/12/23 Andra Canada RN Heart Failure Coordinator Cardiology 07/25/24 documented as of this encounter
--- OUTSIDE RECORDS SUMMARY | 2024-10-22 14:17 | XMS_ITS | Encounter Summary ---
Author Organization [facility] Care Team Providers Care Prevention Rn Name Role Phone Kam Gillette Primary Care Provider [phone] Elif Redman LPN Unavailable [phone] Ralph De Jesus MD Unavailable [phone] Sarah Fairbanks RN Unavailable Unavailable Ava Richards RN Unavailable [phone] Sarah Fairbanks RN Unavailable Unavailable Sarah Fairbanks RN Unavailable Unavailable Andra Canada RN Unavailable Unavailab Encounter Details Date Type Department Care Team (Latest Contact Info) Description 01/21/2015 Orders Only [facility] CLINCONV Provider, MD Tony [address] [place] [address] Social History Tobacco Use Types Packs/Day Years Used Date Smoking Tobacco: Never Assessed Sex and Gender Information Value Date Recorded Sex Assigned at Not on file 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 us Historical [...] documented as of this encounter Care Teams Prevention Rn Relationship Specialty Start Date End Date Kam Gillette PA PCP - General 10/05/18 Elif Redman LPN Process Engineering Intern 01/08/19 01/08/19 Ralph De Jesus MD Referring Physician Cardiology 03/21/22 Sarah Fairbanks, network control operatorHearing Specialist Cardiology 03/21/22 07/12/23 Ava Richards, RN [address] [address] Hearing Specialist Cardiology 03/21/22 Sarah Fairbanks, tubing oiler Failure Coordinator 06/29/23 4 Sarah Fairbanks, tubing oiler Failure Coordinator Transplant 07/12/23 Andra Canada RN Heart Failure Coordinator Cardiology 07/25/24 documented as of this encounter
== END 2024-10-22 13:50 | disposition home or self-care (01) ==
PROVIDERS: PCP Physician Assistant; Visit Provider Physician Assistant
DX: I51.7 Cardiomegaly (principal); R05.3 Chronic cough; R07.82 Intercostal pain
CPT/HCPCS: 71046